=== PATIENT | female | born 1965 | race Caucasian/White ===

== ENCOUNTER 2021-03-13 10:30 | Outpatient (REF) | payer OTHER, SELFPAY ==
--- NOTE | ~2021-03-13 | MM_ITS ---
EXAMINATION: MM SCREENING DIGITAL BREAST TOMOSYNTHESIS, BILATERAL CLINICAL INFORMATION: Screening. Asymptomatic. The lifetime risk of breast cancer based on the Tyrer-Cuzick Model is 11%. COMPARISON: Mammography: 01/28/2017; outside mammography 12/04/2012 ([facility]). TECHNIQUE: Digital breast tomosynthesis is performed in both the craniocaudal and mediolateral oblique views along with computer-aided detection (CAD). Synthesized 2D images are generated from the tomosynthesis. FINDINGS: There are scattered areas of fibroglandular density (ACR BI-RADS breast composition Category b). There are no significant masses, abnormal calcifications, or other abnormalities. Parenchymal pattern is similar to prior exams. No developing density. No significant changes. MM/MM tomosynthesis screening BI IMPRESSION: No mammographic evidence of malignancy. ASSESSMENT: BI-RADS 1: Negative RECOMMENDATION: Routine annual mammography screening. This patient's information was entered into a reminder system with a target due date for their next mammogram.
== END 2021-03-13 10:31 | disposition home or self-care (01) ==
LOC: HO.MAMMO 10:30
PROVIDERS: PCP Family Medicine; Visit Provider Family Medicine
DX: Z12.31 Encounter for screening mammogram for malignant neoplasm of breast (principal)
CPT/HCPCS: 77063; 77067

== ENCOUNTER → 2021-04-03 12:46 | Outpatient (BNVA) | payer OTHER, SELFPAY | PROVIDERS: PCP Family Medicine; Referring Provider Family Medicine; Visit Provider Nurse Practitioner | DX: Z13.89 Encounter for screening for other disorder (principal) | CPT/HCPCS: Q3014 ==

== ENCOUNTER 2021-06-16 10:12 | Outpatient (REF) | payer OTHER, SELFPAY ==
[2021-06-16 10:49] LABS: MANUAL DIFF FLAG NO
[2021-06-16 11:07] LABS: Basophils Percent Auto 0.4 % (0-2); Eosinophils Absolute Auto 0.1 X10*3/uL (0.0-0.4); Eosinophils Percent Auto 2.2 % (0-4); Hematocrit 37.1 % (37.0-47.0); Hemoglobin 12.2 g/dl (12.0-16.0); Imm Gran Abs Auto 0.01 X10*3/uL (0.00-0.03); Imm Gran Pct Auto 0.2 % (0.0-0.4); Lymphocytes Absolute Auto 2.1 X10*3/uL (1.2-4.9); Lymphocytes Percent Auto 39.7 % (20-40); Mean Corpuscular HGB Conc 32.9 g/dl (31.0-35.0); Mean Corpuscular Hemoglobin 29.8 pg (27.0-33.0); Mean Corpuscular Volume 90.5 fL (80.0-98.0); Mean Platelet Volume 9.7 fL (9.4-12.3); Monocytes Absolute Auto 0.4 X10*3/uL (0.1-1.2); Monocytes Percent Auto 7.6 % (2-11); Neutrophils Absolute Auto 2.7 x10*3/uL (2.0-8.3); Neutrophils Percent Auto 49.9 % (45-73); Platelet Count 251 X10*3/uL (160-400); Red Cell Distribution Width 11.5 % (11.0-16.0); White Blood Count 5.4 X10*3/uL (4.8-10.8)
[2021-06-16 11:53] LABS: Alanine Aminotransferase 15 U/L (0-31); Alkaline Phosphatase 57 U/L (39-117); Anion Gap 13 (12-20); Aspartate Amino Transferase 12 U/L (5-31); Bilirubin Total 0.5 mg/dL (0.0-1.0); Blood Urea Nitrogen 17 mg/dL (9-16); Calcium 9.5 mg/dL (8.4-10.2); Carbon Dioxide 28 mmol/L (22-29); Chloride 103 mmol/L (96-108); Estimated Glomerular Filt Rate > 60; Glucose Random 84 mg/dL (60-115); Potassium 5.3 mmol/L (3.3-5.1); Sodium 139 mmol/L (135-145); Total Protein 7.3 g/dL (6.5-8.0)
== END 2021-06-16 10:13 | disposition home or self-care (01) ==
LOC: HO.LAB 10:12
PROVIDERS: PCP Family Medicine; Visit Provider Nurse Practitioner
DX: Z12.11 Encounter for screening for malignant neoplasm of colon (principal)
CPT/HCPCS: 36415; 80053; 85025

== ENCOUNTER 2021-07-20 09:29 | Day surgery (SDC) | payer OTHER, SELFPAY ==
--- NOTE | 2021-07-17 09:12 | P.CONAN_ITS ---
Documented by User: Jazmyne Eng NP 07/17/21 09:19 HPI - Anesthesia Eval Consult details Narrative: 55yo F for Colonoscopy Suboxone daily PMFSH Active Problems Active Problems: All Active Problems (Updated 03/24/20 @ 16:52 by ANDREW Conroy) Colon cancer screening (Acute) Past Medical History Medical History Asthma Depression Elevated cholesterol Polysubstance abuse PTSD (post-traumatic stress disorder) Surgical History Surgical History Hx of section Social History Social History Patient Tobacco Use Status: Current everyday Tobacco user Tobacco use type: Cigarette Cigarette Packs Per Day: 0.5 Cigarettes Per Day: 10.0 Use of substances other than those prescribed or required for medical reasons: No Are you DNR?: No Advance Directives: No Advance Directives Information Provided: Yes Nutrition Risks: No Nutritional Risk Meds Allergies Allergy/AdvReac Type Severity Reaction Status Date / Time No Known Allergies Allergy Verified 04/03/21 12:47 Home Medications Medication Instructions Recorded Confirmed Last Taken Type acamprosate 333 mg tablet,delayed 2 tab PO TID 02/15/20 02/15/20 Unknown History release acetaminophen 650 mg 1,300 mg PO Q8H 02/15/20 02/15/20 Unknown History tablet,extended release albuterol sulfate 90 mcg/actuation 2 puff INHALATION Q4H PRN 02/15/20 02/15/20 Unknown History aerosol inhaler atorvastatin 20 mg tablet 1 tab PO BEDTIME 02/15/20 02/15/20 Unknown History buprenorphine 8 mg-naloxone 2 mg 0.5 strip SUBLINGUAL BID 02/15/20 02/15/20 Unknown History sublingual film bupropion HCl 75 mg tablet PO 02/15/20 Unknown History docusate sodium 100 mg capsule 1 cap PO BID PRN 02/15/20 02/15/20 Unknown History (DOK) fluticasone propionate 110 1 puff PO BID 02/15/20 02/15/20 Unknown History mcg/actuation HFA aerosol inhaler (Flovent HFA) folic acid 1 mg tablet 1 mg PO DAILY 02/15/20 02/15/20 Unknown History hydroxyzine pamoate 50 mg capsule 1 cap PO TID PRN 02/15/20 02/15/20 Unknown History melatonin 5 mg tablet 5 mg PO BEDTIME PRN 02/15/20 02/15/20 Unknown History olanzapine 20 mg tablet 20 mg PO DAILY 02/15/20 02/15/20 Unknown History prazosin 2 mg capsule 2 mg PO BEDTIME 02/15/20 02/15/20 Unknown History sertraline 50 mg tablet (Zoloft) 50 mg PO DAILY 02/15/20 02/15/20 Unknown History thiamine HCl (vitamin B1) 100 mg 100 mg PO DAILY 02/15/20 02/15/20 Unknown History tablet Exam Exam Date and Time: July 17, [id number] Pertinent Lab Results Pertinent Lab Results: Laboratory Tests 06/16/21 06/16/21 10:47 10:47 WBC 5.4 Hgb 12.2 Hct 37.1 Plt Count 251 Sodium 139 Potassium 5.3 H Chloride 103 Carbon Dioxide 28 BUN 17 H Creatinine 0.90 Assessment and Plan Assessment Anesthesia Assessment: Chart Reviewed Documented by User: Lyla Hsu MD 07/20/21 10:43 PMFSH Past Medical History Medical History Asthma Depression Elevated cholesterol Polysubstance abuse PTSD (post-traumatic stress disorder) Surgical History Surgical History Hx of section History of Problems with Anesthesia: No Social History Social History Patient Tobacco Use Status: Current everyday Tobacco user Tobacco use type: Cigarette Cigarette Packs Per Day: 0.5 Cigarettes Per Day: 10.0 Use of substances other than those prescribed or required for medical reasons: No Are you DNR?: No Advance Directives: No Advance Directives Information Provided: Yes Nutrition Risks: No Nutritional Risk Meds Allergies Allergy/AdvReac Type Severity Reaction Status Date / Time No Known Allergies Allergy Verified 04/03/21 12:47 Home Medications Medication Instructions Recorded Confirmed Last Taken Type acamprosate 333 mg tablet,delayed 2 tab PO TID 02/15/20 02/15/20 Unknown History release acetaminophen 650 mg 1,300 mg PO Q8H 02/15/20 02/15/20 Unknown History tablet,extended release albuterol sulfate 90 mcg/actuation 2 puff INHALATION Q4H PRN 02/15/20 02/15/20 Unknown History aerosol inhaler atorvastatin 20 mg tablet 1 tab PO BEDTIME 02/15/20 02/15/20 Unknown History buprenorphine 8 mg-naloxone 2 mg 0.5 strip SUBLINGUAL BID 02/15/20 02/15/20 Unknown History sublingual film bupropion HCl 75 mg tablet PO 02/15/20 Unknown History docusate sodium 100 mg capsule 1 cap PO BID PRN 02/15/20 02/15/20 Unknown History (DOK) fluticasone propionate 110 1 puff PO BID 02/15/20 02/15/20 Unknown History mcg/actuation HFA aerosol inhaler (Flovent HFA) folic acid 1 mg tablet 1 mg PO DAILY 02/15/20 02/15/20 Unknown History hydroxyzine pamoate 50 mg capsule 1 cap PO TID PRN 02/15/20 02/15/20 Unknown Hi story melatonin 5 mg tablet 5 mg PO BEDTIME PRN 02/15/20 02/15/20 Unknown History olanzapine 20 mg tablet 20 mg PO DAILY 02/15/20 02/15/20 Unknown History prazosin 2 mg capsule 2 mg PO BEDTIME 02/15/20 02/15/20 Unknown History sertraline 50 mg tablet (Zoloft) 50 mg PO DAILY 02/15/20 02/15/20 Unknown History thiamine HCl (vitamin B1) 100 mg 100 mg PO DAILY 02/15/20 02/15/20 Unknown History tablet Exam Airway Mallampati Class: II TM Dist: >3cm Neck ROM: Full Loose/Missing/Broken Teeth: No Heart: RRR Lungs: CTA Assessment and Plan Assessment Anesthesia Assessment: Anesthesia Plan Discussed Final Anesthetic Review History of Problems with Anesthesia: No NPO: Yes ASA Class: II Final Preanesthetic Review: Meds/Allgs Chart Reviewed, Consent Obtained/Reviewed and Anes Risks/Benef Reviewed Patient Risk: Low Procedure Risk: Low Anesthetic Plan Anesthetic Plan: MAC: Disposition: Standard PACU
[2021-07-20 09:41] VITALS: BMI 26.4
[2021-07-20 10:18] VITALS: BP 102/54; PULSE 49; RESP 16; TEMP 36.1; O2SAT 96
--- NOTE | 2021-07-20 10:27 | MHC.SHP ---
Pre-Procedural Eval Section A Date of Service: 07/20/21 The patient is an INPATIENT: No The History & Physical has been completed within 30 days and I have reviewed it.: No Section B Chief Complaint: Screening Details of Present Illness: Colon cancer screening Relevant Social History: Tobacco Use Present Medications: see Short Stay Collaborative assessment Medical History: Significant History (Asthma Depression Elevated cholesterol Polysubstance abuse PTSD (post-traumatic stress disorder)) History of Previous Operations: Relevant previous surgery/procedure and date(s) (History of ) Allergies: Allergies Allergy/AdvReac Type Severity Reaction Status Date / Time No Known Allergies Allergy Verified 04/03/21 12:47 Review of Systems Sugical H&P ROS: Negative: Constitution, Cardiovascular, Respiratory and Gastrointestinal Exam Surgical H&P Exam: Normal: Heart, Normal: Lungs, Normal: Extremities and Normal: Abdomen Plan Diagnosis/Plan: Unchanged I have reviewed the history and physical and performed a pertinent physical examination on my patient. No changes have occurred unless specified.
--- NOTE | 2021-07-20 10:29 | P.OP_ITS ---
Operative Note Operative Note Date of Service: 07/20/21 Narrative: Pre-op diagnosis: Colon cancer screening Post-op diagnosis:?other (Diverticulosis) Procedure: COLONOSCOPY TILL CECUM Consent: Indications for the procedure and potential complications of bleeding, perforation, reaction to medications and missed diagnosis were discussed with the patient and informed consent was obtained. Instrument: Olympus PCF H 190 L variable stiffness pediatric colonoscope Monitoring: Vital signs and clinical assessment, intermittent blood pressure monitoring, continuous EKG monitoring, Pulse oximetry and Carbon Dioxide monitoring were done throughout the procedure. Colon withdrawl time was 15 minutes. Procedure: The patient was placed in the left lateral decubitis position and pre-procedure medications were administered. After a digital rectal examination of the ano-rectum, the video colonoscope was inserted into the rectum and advanced through the colon to the cecum. The colonoscope was slowly withdrawn in a retrograde panoramic fashion and the colon mucosa was carefully examined including a retroflexed view of the rectum. Findings and interventions are described below. Procedure Difficulty: Without difficulty Findings: Terminal Ileum: Not evaluated Cecum:? Normal Ascending Colon:? Normal Transverse Colon:? Normal Descending Colon:? Normal Sigmoid Colon:? Moderate diverticulosis Rectum:? Normal Ano-rectum:? Normal Colon preparation:? Good after some irrigation Impression and Post Procedure Diagnosis: Colonoscopy Findings: No polyps were detected Moderate diverticulosis seen in the sigmoid colon Plan: Patient has an appointment on 08/10/21 in the GI Clinic with? Marlena Orona NP . Repeat Colonoscopy in 5 years since family hx is not known (pt is adopted). Above findings were reviewed with the patient and diverticulosis handout was given in the discharge area Surgeon: Logan Salazar MD Anesthesia:?MAC (Dr Hsu) Was an Desktop Operator used for this Procedure?:?Yes Desktop Operator:?Sapna Carrillo Estimated blood loss (mL):?0 Pathology:?none sent Condition:?stable Disposition:?PACU
[2021-07-20 10:39] VITALS: PULSE 44
[2021-07-20] MEDS: Lactated Ringers 1,000 ML 100 ML IVCONT (10:46)
[2021-07-20 11:20] VITALS: BP 112/67; PULSE 67; RESP 18; TEMP 36.6; O2SAT 99
[2021-07-20 11:35] VITALS: BP 127/72; PULSE 62; RESP 20; TEMP 36.7; O2SAT 99
== END 2021-07-20 12:18 | disposition home or self-care (01) ==
PROVIDERS: PCP Family Medicine; Visit Provider Internal Medicine Gastroenterology
PROC: 0DJD8ZZ Inspection of Lower Intestinal Tract, Via Natural or Artificial Opening Endoscopic (ICD-10-PCS; CPT 45378; principal; 2021-07-20 10:50)
DX: Z12.11 Encounter for screening for malignant neoplasm of colon (principal); K57.30 Diverticulosis of large intestine without perforation or abscess without bleeding; J45.909 Unspecified asthma, uncomplicated; E78.00 Pure hypercholesterolemia, unspecified; F10.20 Alcohol dependence, uncomplicated; F14.20 Cocaine dependence, uncomplicated; F11.20 Opioid dependence, uncomplicated; F17.210 Nicotine dependence, cigarettes, uncomplicated; F32.9 Major depressive disorder, single episode, unspecified; F43.10 Post-traumatic stress disorder, unspecified; Z79.51 Long term (current) use of inhaled steroids; Z79.899 Other long term (current) drug therapy
CPT/HCPCS: G0121

== ENCOUNTER → 2021-08-10 12:48 | Outpatient (BNVA) | payer OTHER, SELFPAY | PROVIDERS: PCP Family Medicine; Referring Provider Family Medicine; Visit Provider Nurse Practitioner | DX: Z12.11 Encounter for screening for malignant neoplasm of colon (principal) | CPT/HCPCS: 99212 ==

== ENCOUNTER 2022-11-29 14:57 | Outpatient (REF) | payer MEDICARE, SELFPAY ==
[2022-12-01 02:20] LABS: Syphilis Screen Nonreactive (Nonreactive)
[2022-12-03 05:44] LABS: Lyme Abs Screen <0.90 index
== END 2022-11-29 14:58 | disposition home or self-care (01) ==
LOC: HO.HHCL 14:57
PROVIDERS: Visit Provider Emergency Medicine
DX: R21 Rash and other nonspecific skin eruption (principal)
CPT/HCPCS: 36415; 86617; 86618; 86780

== ENCOUNTER 2023-05-04 09:10 | Outpatient (REF) | payer OTHER, SELFPAY ==
[2023-05-04 11:47] LABS: Hematocrit 38.9 % (37.0-47.0); Hemoglobin 12.8 g/dl (12.0-16.0); Mean Corpuscular HGB Conc 32.9 g/dl (31.0-35.0); Mean Corpuscular Hemoglobin 29.6 pg (27.0-33.0); Mean Platelet Volume 10.7 fL (9.4-12.3); Platelet Count 205 X10*3/uL (160-400); Red Blood Count 4.32 X10*6/uL (4.20-5.50); Red Cell Distribution Width 11.9 % (11.0-16.0); White Blood Count 4.7 X10*3/uL (4.8-10.8)
[2023-05-04 12:01] LABS: Estimated Average Glucose 111 mg/dL; Hemoglobin A1c % 5.5 % (<6.0)
[2023-05-04 12:10] LABS: Alanine Aminotransferase 16 U/L (0-31); Albumin Level 4.1 g/dL (3.5-5.0); Alkaline Phosphatase 70 U/L (39-117); Anion Gap 15 (12-20); Aspartate Amino Transferase 15 U/L (5-31); Bilirubin Direct 0.2 mg/dL (0.0-0.5); Bilirubin Total 0.6 mg/dL (0.0-1.0); Blood Urea Nitrogen 19 mg/dL (9-16); Calcium 9.4 mg/dL (8.4-10.2); Carbon Dioxide 22 mmol/L (22-29); Chloride 105 mmol/L (96-108); Cholesterol 137 mg/dL (<200); Estimated Glomerular Filt Rate > 60; Glucose Random 84 mg/dL (60-115); HDL Cholesterol 47 mg/dL (>40); LDL Cholesterol Calculated 72 mg/dL (<100); Potassium 3.9 mmol/L (3.3-5.1); Sodium 138 mmol/L (135-145); Total Protein 7.7 g/dL (6.5-8.0); Triglycerides 91 mg/dL (<150)
[2023-05-04 12:36] LABS: Free T4 (Free Thyroxine) 1.06 ng/dL (0.71-1.85); Thyroid Stimulating Hormone 3.07 uIU/mL (0.32-4.0)
[2023-05-06 08:44] LABS: RPR Rapid Plasma Reagin NON-REACTIVE (NON-REACTIVE)
== END 2023-05-04 09:11 | disposition home or self-care (01) ==
LOC: HO.HHCL 09:10
PROVIDERS: Visit Provider Family Medicine
DX: E78.49 Other hyperlipidemia (principal)
CPT/HCPCS: 36415; 80048; 80061; 80076; 82306; 83036; 84439; 84443; 85027; 86592

== ENCOUNTER 2023-05-10 10:23 | Outpatient (REF) | payer OTHER, SELFPAY | END 2023-05-10 10:24 | disposition home or self-care (01) | LOC: HO.HHCX 10:23 | PROVIDERS: Visit Provider Family Medicine | DX: M25.571 Pain in right ankle and joints of right foot (principal); G89.29 Other chronic pain | CPT/HCPCS: 73600; 73620 ==

== ENCOUNTER 2023-10-07 10:59 | Outpatient (REF) | payer OTHER, SELFPAY ==
--- NOTE | ~2023-10-07 | XR_ITS ---
EXAMINATION: XR HAND, RIGHT CLINICAL INFORMATION: Pain, 2 months duration of right thumb MCP joint. COMPARISON: None available. TECHNIQUE: PA, lateral, and oblique views of the right hand. FINDINGS: Carpal bones are normal (i.e., no carpal bone fracture or subluxation). The joint spaces of the wrist are maintained. Old healed fracture of the distal fifth metacarpal. No acute osseous injury. There is nonuniform articular cartilage space narrowing, subchondral cystic change and minimal osteophyte formation at the thumb metacarpophalangeal joint. Soft tissues appear to be swollen around this joint. There is anterior and ulnar subluxation of the proximal phalanx of this arthritic joint. Otherwise, metacarpophalangeal joint spaces are well-preserved. Interphalangeal joints are unremarkable. 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 * Old healed fracture of the fifth metacarpal. No acute osseous injury.
== END 2023-10-07 11:00 | disposition home or self-care (01) ==
LOC: HO.HHCX 10:59
PROVIDERS: Visit Provider Family Medicine
DX: M79.644 Pain in right finger(s) (principal)
CPT/HCPCS: 73130

== ENCOUNTER 2023-10-11 15:05 | Outpatient (REF) | payer OTHER, SELFPAY ==
[2023-10-11 16:19] LABS: MANUAL DIFF FLAG NO
[2023-10-11 16:24] LABS: Basophils Percent Auto 0.6 % (0-2); Eosinophils Absolute Auto 0.1 X10*3/uL (0.0-0.4); Eosinophils Percent Auto 1.4 % (0-4); Hematocrit 36.6 % (37.0-47.0); Hemoglobin 12.3 g/dl (12.0-16.0); Imm Gran Abs Auto 0.02 X10*3/uL (0.00-0.03); Imm Gran Pct Auto 0.4 % (0.0-0.4); Lymphocytes Absolute Auto 1.2 X10*3/uL (1.2-4.9); Lymphocytes Percent Auto 23.1 % (20-40); Mean Corpuscular HGB Conc 33.6 g/dl (31.0-35.0); Mean Corpuscular Hemoglobin 29.6 pg (27.0-33.0); Mean Platelet Volume 9.9 fL (9.4-12.3); Monocytes Absolute Auto 0.3 X10*3/uL (0.1-1.2); Monocytes Percent Auto 6.6 % (2-11); Neutrophils Absolute Auto 3.4 x10*3/uL (2.0-8.3); Neutrophils Percent Auto 67.9 % (45-73); Platelet Count 208 X10*3/uL (160-400); Red Blood Count 4.16 X10*6/uL (4.20-5.50); Red Cell Distribution Width 11.7 % (11.0-16.0)
[2023-10-11 17:07] LABS: Estimated Average Glucose 114 mg/dL; Hemoglobin A1C 151.9939 umol/L; Hemoglobin A1c % 5.6 % (<6.0)
[2023-10-11 17:42] LABS: Alanine Aminotransferase 19 U/L (0-31); Alkaline Phosphatase 80 U/L (39-117); Anion Gap 15 (12-20); Aspartate Amino Transferase 14 U/L (5-31); Bilirubin Direct 0.2 mg/dL (0.0-0.5); Bilirubin Total 0.5 mg/dL (0.0-1.0); Blood Urea Nitrogen 17 mg/dL (9-16); Calcium 9.5 mg/dL (8.4-10.2); Carbon Dioxide 24 mmol/L (22-29); Chloride 105 mmol/L (96-108); Cholesterol 157 mg/dL (<200); Estimated Glomerular Filt Rate > 60; Glucose Random 80 mg/dL (60-115); HDL Cholesterol 55 mg/dL (>40); Iron 63 mcg/dL (30-160); LDL Cholesterol Calculated 82 mg/dL (<100); Percent Iron Saturation 23 % (15-50); Potassium 4.2 mmol/L (3.3-5.1); Sodium 140 mmol/L (135-145); Total Iron Binding Capacity 277 mcg/dL (228-428); Total Protein 7.5 g/dL (6.5-8.0); Triglycerides 100 mg/dL (<150); Unsaturated Iron Binding 214 ug/dL
[2023-10-11 17:59] LABS: Ferritin 64 ng/mL (10-250); Free T4 (Free Thyroxine) 0.94 ng/dL (0.71-1.85); Vitamin D 25-OH Total 22.7 ng/mL (>30)
[2023-10-11 18:06] LABS: Folate 8.7 ng/mL (> or = 4.0); Vitamin B12 316 pg/mL (200-900)
[2023-10-12 08:29] LABS: Hepatitis A Antibody IgG REACTIVE (Nonreactive)
[2023-10-12 08:33] LABS: HBS Num1 > 1000.00 mIU/mL (0-7.99); HBc Num1 0.08 S/CO (0.00-0.79); HBsAGNum1 0.28 S/CO (0.00-0.99); HIV AB/AG Nonreactive (Nonreactive); HIV Num 1 0.04 S/CO (0.00-0.99); Hepatitis B Core Antibody Nonreactive (Nonreactive); Hepatitis B Surface Antigen Negative (Negative); ~HepC Num1 0.11 S/CO (0.00-0.79); ~Hepatitis B Surface Antibody REACTIVE (Nonreactive); ~Hepatitis C Antibody Nonreactive (Nonreactive)
[2023-10-12 11:33] LABS: RPR Rapid Plasma Reagin NON-REACTIVE (NON-REACTIVE)
[2023-10-16 15:04] LABS: Vitamin B1 16 nmol/L (8-30)
== END 2023-10-11 15:06 | disposition home or self-care (01) ==
LOC: HO.HHCL 15:05
PROVIDERS: Visit Provider Family Medicine
DX: Z00.00 Encounter for general adult medical examination without abnormal findings (principal); R25.1 Tremor, unspecified
CPT/HCPCS: 36415; 80048; 80061; 80076; 82306; 82607; 82728; 82746; 83036; 83540; 84425; 84439; 84443; 85025; 86592; 86704; 86706; 86708; 86803; 87340; 87389

== ENCOUNTER 2024-02-21 18:02 | Outpatient (REF) | payer OTHER, SELFPAY | END 2024-02-21 18:03 | disposition home or self-care (01) | LOC: HO.HHCLNP 18:02 | PROVIDERS: Visit Provider Nurse Practitioner Primary Care | DX: N30.01 Acute cystitis with hematuria (principal) | CPT/HCPCS: 87086; 87088; 87186 ==

== ENCOUNTER 2024-06-26 13:31 | Outpatient (REF) | payer OTHER, SELFPAY ==
--- OUTSIDE RECORDS SUMMARY | 2024-06-26 13:44 | XMS_ITS | Encounter Summary ---
Author Organization [facility] Address [address] [facility] [address] [place] [address] Care Team Providers Care Microsoft Bi Consultant Name Role Phone Natalie Cuenca DO Primary Care Provider Encounter Details Date Type Department Care Team (Latest Contact Info) Description 05/02/2019 Abstract [facility] CONVERSIONS Dental, Provider, DDS Social History Tobacco Use Types Packs/Day Years Used Date Smoking Tobacco: Never Assessed Comments Unknown Sex and Gender Information Value Date Recorded Sex Assigned at Female 03/22/2022 10:14 AM EDT Legal Sex Female 10:14 AM EDT Gender Identity Female 03/22/2022 10:14 AM EDT Sexual Orientation Lesbian or Koenig 03/22/2022 10 :14 AM EDT documented as of this encounter Plan of Treatment Upcoming Encounters Date Type Department Care Team (Late st Contact Info) Description 06/26/2024 2:30 PM EST Office Visit [address] [address] Mina Lan MD [address] [place] [address] 07/24/2024 2:00 PM EST Clinical Support [facility] MEDICINE [address] [place] [phone] Debbie Vogel, PARAMJIT documented as of this encounter Visit Diagnoses Not on filedocumented in this encounter Care Teams Microsoft Bi Consultant Relationship Specialty Start Date End Date Natalie Cuenca DO [address] [place] [phone] PCP - General Family Medicine 05/23/18 documented as of this encounter
--- OUTSIDE RECORDS SUMMARY | 2024-06-26 13:44 | XMS_ITS | Encounter Summary ---
Author Organization [employer] Address [address] [facility] [address] [place] [address] Care Team Providers Care Coroner Technician Name Role Phone Natalie Cuenca DO Primary Care Provider [phone] Reason for Visit * Reason Comments Med Change Request Encounter Details Date Type Department Care Team ([facility] st Contact Info) Description 02/26/2024 Refill [facility] MEDICINE [address] [place], [place] [phone] Natalie Cuenca DO [address] [place], [place] [phone] Tobacco use disorder Social History Tobacco Use Types Packs/Day Years Used Date Smoking Tobacco: Every Day Cigarettes Passive Smoke Exposure: Never Smokeless Tobacco: Never Alcohol Use Standard Drinks/Week Comments Not Currently 0 (1 standard drink = 0.6 oz pur e alcohol) Depression Answer Date Recorded Patient Health Questionnaire-9 Score 10 02/07/2024 Patient Health Questionnaire-9 Score 10 02/07/2024 Last PHQ-9: Questionnaire Data Not on file 0 02/07/2024 Housing Stability Answer Date Recorded What is your housing situation today? I have mariah mane 10/10/[address] you li ve. Do you have problems with any of the following? None of the above 10/10/2023 Food Insecurity Answer Date Recorded Within the past 12 months, y ou worried that your food would run out before you got money to buy more: Never True 10/10/2023 Within the past 12 months,th e food you bought just didn't last and you didn't have enough money to get more: Never True Transportation Answer Date Recorded In the past 12 months, has l ack of transportation kept you from medical appts, meetings, work or from getting things needed for daily living? No 10/10/2023 Utilities Answer Date Recorded In the past 12 months, has t he electric, gas, oil or water company threatened to shut off services in your home? No 10/10/2023 Depression Answer Date Recorded Patient Health Questionnaire-2 Score 4 02/07/2024 Comments Unknown Sex and Gender Information Value [...] Description 06/26/2024 2:30 PM EST Office Visit [address] [phone] Mina Lan MD [address] [place] [address] 07/24/2024 2:00 PM EST Clinical Support [address] [address] Debbie Vogel, PARAMJIT documented as of this encounter Visit Diagnoses Diagnosis Tobacco use disorder documented in this encounter Additional Health Concerns Assessment Noted Time PHQ-9 Depression Total Score: 10 024 8:39 AM EDT documented as of this encounter Care Teams Coroner Technician Relationship Specialty Start Date End Date Natalie Cuenca DO [address] [place] [phone] PCP - General Family Medicine 05/23/18 documented as of this encounter
--- OUTSIDE RECORDS SUMMARY | 2024-06-26 13:44 | XMS_ITS | Encounter Summary ---
Author Organization [employer] Address [address] [facility] 7[address] [place] [address] Care Team Providers Care Registered Dietetic Technician Name Role Phone Natalie Cuenca DO Primary Care Provider [phone] Reason for Visit * Reason Onset Date Comments Referral 02/23/2024 Encounter Details Date Type Department Care Team ([facility] st Contact Info) Description 02/23/[address] [facility] MEDICINE [address] [place], [place] [phone] Natalie Cuenca DO [address] [place] [address] Referral Social History Tobacco Use Types Packs/Day Years [...] AM EDT documented as of this encounter Miscellaneous Notes * Telephone Encounter - Dexter Nascimento Palomo - 02/23/2024 3:56 PM EDT Tc from pt requesting if pcp could refer her over somewhere in [place] due to location, Referral for BI Mammogram documented in this encounter Plan of Treatment Upcoming Encounters Date Type Department Care Team (Late st Contact Info) Description 06/26/2024 2:30 PM EST Office Visit [facility] MEDICINE [address] [place] [address] Mina Lan MD [address] [place] [address] 07/24/2024 2:00 PM EST Clinical Support [address] [address] Debbie Vogel RN documented as of this encounter Visit Diagnoses Not on filedocumented in this encounter Additional Health Concerns Assessment Noted Time PHQ-9 Depression Total Score: 10 024 8:39 AM EDT documented as of this encounter Care Teams Registered Dietetic Technician Relationship Specialty Start Date End Date Natalie Cuenca DO [address] [place] [phone] PCP - General Family Medicine 05/23/18 documented as of this encounter
--- OUTSIDE RECORDS SUMMARY | 2024-06-26 13:45 | XMS_ITS | Encounter Summary ---
Author Organization [employer] [facility] Address [address] [facility] [address] [place] [address] Care Team Providers Care Press Worker Helper Name Role Phone Natalie Cuenca DO Primary Care Provider [phone]- [phone] Reason for Visit * Reason Comments Med Refill Encounter Details Date Type Department Care Team (Late st Contact Info) Description 01/02/[address] [phone] Natalie Cuenca DO [address] [place] [address] [phone] Tobacco use disorder; Muscle spasm Social History Tobacco Use Types Packs/Day Years Used Date Smoking Tobacco: Every Day Cigarettes Smokeless Tobacco: Never Alcohol Use Standard Drinks/Week Comments Not Currently 0 (1 standard drink = 0.6 oz pur e alcohol) Depression Answer Date Recorded Patient Health Questionnaire-9 Score 0 06/18/2022 Depression Answer Date Recorded Patient Health Questionnaire-2 Score 0 06/18/2022 Comments Unknown Sex and Gender Information Value [...] Description 06/26/2024 2:30 PM EST Office Visit [address] [phone] Mina Lan MD [address] [place] [phone] Arrived 07/24/2024 2:00 PM EST Clinical Support [address] [place] [address] Debbie Vogel RN documented as of this encounter Visit Diagnoses Diagnosis Tobacco use disorder Muscle spasm Spasm of muscle documented in this encounter Additional Health Concerns Assessment Noted Time PHQ-9 Depression Total Score: 0 06/18/19 23 1:12 PM EST documented as of this encounter Care Teams Press Worker Helper Relationship Specialty Start Date End Date Natalie Cuenca DO [address] [place] [address] PCP - General Family Medicine 05/23/18 documented as of this encounter
--- OUTSIDE RECORDS SUMMARY | 2024-06-26 13:45 | XMS_ITS | Encounter Summary ---
Author Organization [employer] [facility] Address [address] [facility] [address] [place] [address] Care Team Providers Care Military Lawyer Name Role Phone Natalie Cuenca DO Primary Care Provider Encounter Details Date Type Department Care Team (Late st Contact Info) Description 05/25/2022 [facility] [address] [place], [place] [phone] Natalie Cuenca DO [address] [place], [place] [phone] Social History Tobacco Use Types Packs/Day Years Used Date Smoking Tobacco: Never Assessed Comments Unknown Sex and Gender Information Value Date Recorded Sex Assigned at Female 03/22/2022 10:14 AM EDT Legal Sex Female 10:14 AM EDT Gender Identity Female 03/22/2022 10:14 AM EDT Sexual Orientation Lesbian or Koenig 03/22/2022 10 :14 AM EDT COVID-19 Exposure Response Date Recorded In the last 10 days, have yo u been in contact with someone who was confirmed or suspected to have Coronavirus/COVID-19? No / Unsure 05/28/2022 10:26 AM EST documented as of this encounter Plan of Treatment Upcoming Encounters Date Type Department Care Team (Late st Contact Info) Description 06/26/2024 2:30 PM EST Office Visit [address] [phone] Mina Lan MD [address] [place], [place] [phone] 07/24/2024 2:00 PM EST Clinical Support [address] [phone] Enko, Debbie, RN documented as of this encounter Visit Diagnoses Not on filedocumented in this encounter Care Teams Military Lawyer Relationship Specialty Start Date End Date Natalie Cuenca DO [address] [place] [phone] PCP - General Family Medicine 05/23/18 documented as of this encounter
--- OUTSIDE RECORDS SUMMARY | 2024-06-26 13:45 | XMS_ITS | Encounter Summary ---
Author Organization [employer] Address [address] [facility] [address] [place] [address] Care Team Providers Care Stripper Cutter Machine Name Role Phone SamuelNatalie dumont Primary Care Provider Encounter Details Date Type Department Care Team (Latest Contact Info) Description 06/19/2024 Travel Social History Tobacco Use Types Packs/Day Years Used Date Smoking Tobacco: Every Day Cigarettes Passive Smoke Exposure: Never Smokeless Tobacco: Never Alcohol Use Standard Drinks/Week Comments Not Currently 0 (1 standard drink = 0.6 oz pur e alcohol) Depression Answer Date Recorded Patient Health Questionnaire-9 Score 7 06/07/2024 Patient Health Questionnaire-9 Score 7 06/07/2024 Last PHQ-9: Questionnaire Data Not on file 0 06/07/2024 Housing Stability Answer Date Recorded What is [...] Date Recorded Patient Health Questionnaire-2 Score 4 06/07/2024 Comments Unknown Sex and Gender Information Value [...] Description 06/26/2024 2:30 PM EST Office Visit [address] [phone] Mina Lan MD [address] [place] [address] 07/24/2024 2:00 PM EST Clinical Support [address] [address] Debbie Vogel RN documented as of this encounter Visit Diagnoses Not on filedocumented in this encounter Additional Health Concerns Assessment Noted Time PHQ-9 Depression Total Score: 7 06/07/19 25 1:09 PM EST documented as of this encounter Care Teams Stripper Cutter Machine Relationship Specialty Start Date End Date Natalie Cuenca DO [address] [place] [phone] PCP - General Family Medicine 05/23/18 documented as of this encounter
--- OUTSIDE RECORDS SUMMARY | 2024-06-26 13:45 | XMS_ITS | Encounter Summary ---
Author Organization [facility] [employer] Address [address] [facility] 7t [place] [address] Care Team Providers Care Stonemason Helper Name Role Phone Michaeltorsten Natalie Primary Care Provider +1- [phone] Reason for Referral * Consultation (Routine) - Authorized Specialty Diagnoses / Procedures Referred By Jigna gama Referred To Contact Family Medicine Diagnoses Labial cyst Tatiana Putnam CNM [address] [place] [address] Phone: tel: fax: Referral ID Status Reason Start Date Expiration Date Visits Requested Visits Authorized [id number] Authorized Specialty Services Required 06/26/2024 06/26/2025 1 1 Reason for Visit * Reason Comments Gynecologic Exam Encounter Details Date Type Department Care Team (Latest Contact Info) Description 06/26/2024 1:00 PM EST Procedure Visit [facility] MED[facility]INE [address] [place] [address] Tatiana Putnam CNM [address] [place] [address] Cervical cancer screening (Primary Dx); Screening examination for venereal disease; Labial cyst; Candidal skin infection Social History Tobacco Use Types Packs/Day Years [...] Patient Health Questionnaire-2 Score 4 06/07/2024 Comments No Sex and Gender Information Value Date Recorded Sex Assigned at Female 03/22/2022 10:14 AM EDT Legal Sex Female 10:14 AM EDT Gender Identity Female 03/22/2022 10:14 AM EDT Sexual Orientation Lesbian or Koenig 03/22/2022 10 :14 AM EDT documented as of this encounter Last Filed Vital Signs Vital Sign Reading Time Taken Comments Blood Pressure 104/64 06/26/2024 1:06 PM EST Pulse 66 06/26/2024 1:06 PM EST Temperature 36.3 ??C (97.3 ??F) 06/26/2024 1:06 PM ES T Respiratory Rate 20 06/26/2024 1:06 PM EST Oxygen Saturation 98% 06/26/2024 1:06 PM EST Inhaled Oxygen Concentration - - Weight 84.2 kg (185 lb 9.6 oz) 06/26/2024 1:06 P M EST Height 149.9 cm (4' 11 ) 06/26/2024 1:06 PM EST Body Mass Index 37.49 06/26/2024 1:06 PM EST documented in this encounter Progress Notes * Tatiana Putnam CNM - 06/26/2024 1:00 PM EST Subjective Patient ID: Citlalli Julien is a 58 y.o. 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 Mammogram ordered last month. She would like to get it at [facility] as she lives in [place]. Broke up with AMAB partner about 1 month ago, would like STI testing. Hep C neg, Hep B immune 09/2023. Notes some vaginal discharge, no other vaginal/urinary symptoms. Has rash on her breast she would like checked as well as cyst in left labia that has been present for many years. Menopausal in early 50s, no bleeding since then. History of finger fracture, no other fractures. Doesn't know if either parent had a hip fracture. Review of Systems Genitourinary: Positive for vaginal discharge. Negative for dyspareunia, dysuria, frequency, genital sores, hematuria, menstrual problem, pelvic pain, urgency, vaginal bleeding and vaginal pain. No abnormal pap, no abnormal bleeding, no breast pain, no breast mass, no nipple discharge Skin: Positive for rash. Objective BP 104/64 (BP Location: Left arm, Patient Position: Sitting, BP Cuff Size: Large adult) Pulse 66 Temp 97.3 ??F (36.3 ??C) (Temporal) Resp 20 Ht 4' 11 (1.499 m) Wt 185 lb 9.6 oz (84.2 kg) SpO2 98% BMI 37.49 kg/m?? Physical Exam Constitutional: Appearance: Normal appearance. Chest: Breasts: Right: Normal. No swelling, bleeding, inverted nipple, mass, nipple discharge, skin change or tenderness. Left: Normal. No swelling, bleeding, inverted nipple, mass, nipple discharge, skin change or tenderness. Comments: Rash under left breast, well demarcated, consistent with lyndsey. Abdominal: General: A surgical scar is present. Comments: Vertical incision from c-sections Genitourinary: Labia: Right: No rash, tenderness, lesion or injury. Left: No rash, tenderness, lesion or injury. Vagina: Normal. No signs of injury and foreign body. No vaginal discharge, erythema, tenderness, bleeding or lesions. Cervix: No cervical motion tenderness, discharge, friability, lesion, erythema, cervical bleeding or eversion. Uterus: Normal. Not enlarged and not tender. Adnexa: Right adnexa normal and left adnexa normal. Right: No mass, tenderness or fullness. Left: No mass, tenderness or fullness. Comments: Ovaries non palpable bilaterally. Fair tone with Kegels, no prolapse with Valsalva Just under 2 cm cyst in left labia majora, no redness/exudate. Lymphadenopathy: Upper Body: Right upper body: No supraclavicular or axillary adenopathy. Left upper body: No supraclavicular or axillary adenopathy. Neurological: Mental Status: She is alert. Psychiatric: Mood and Affect: Mood normal. Behavior: Behavior normal. Assessment/Plan Diagnoses and all orders for this visit: Cervical cancer screening - Pap Smear Cotest today. Repeat 5 y if normal/HPV negative. Will contact with results. Will have [place] fax mammogram order to [facility]. DEXA at 67, sooner if new risk factors. Report bleeding. If yeast/bacterial vaginosis on pap, will treat. Screening examination for venereal disease - STI testing add on (NG, CT, Trich) - HIV-1/2 Antigen and Antibodies, Fourth Generation, with Reflexes - Syphilis Screen; Future Pap based and serum STI labs ordered. Will contact with results. Advised STI testing with new partners. Labial cyst - Referral to [facility] Derm Skin Adult; Future No s/sx infection, but very bothersome. Will refer to derm for removal Candidal skin infection For Nystatin as prescribed. Followup with PCP if no improvement. Other orders - nystatin (Mycostatin) cream; Apply topically 2 times daily for 14 days. documented in this encounter Plan of Treatment Upcoming Encounters Date Type Department Care Team (Late st Contact Info) Description 06/26/2024 2:30 PM EST Office Visit [address] [address] Mina Lan MD [address] [place] [phone] 07/24/2024 2:00 PM EST Clinical Support [address] [address] Debbie Vogel RN Scheduled Orders Name Type Priority Associated Diagnoses Orde r Schedule Pap Smear Pathology and Cytology Routine Cervical cancer screening Ordered: 06/26/2024 STI testing add on (NG, CT, Trich) Pathology and Cytology Routine Screening examination for venereal disease Ordered: 06/26/2024 HIV-1/2 Antigen and Antibodies, Fourth Generation, with Reflexes Lab Routine Screening examination for venereal disease Ordered: 06/26/2024 Syphilis Screen Lab Routine Screening examination for venereal disease Expected: 06/26/2024, Expires: 06/26/2025 Scheduled Referrals Name Type Priority Associated Diagnoses Orde r Schedule Referral to [facility] Derm Skin Adult Outpatient Referral Routine Labial cyst Expected: 06/26/2024 (Approximate), Expires: 06/26/2025 documented as of this encounter Visit Diagnoses Diagnosis Cervical cancer screening- Primary Screening for malignant neoplasm of the cervix Screening examination for venereal disease Labial cyst Other specified noninflammatory disorder of vulva and perineum Candidal skin infection documented in this encounter Additional Health Concerns Assessment Noted Time PHQ-9 Depression Total Score: 7 06/07/19 25 1:09 PM EST documented as of this encounter Care Teams Stonemason Helper Relationship Specialty Start Date End Date Natalie Cuenca DO [address] [place] [id number] PCP - General Family Medicine 05/23/18 documented as of this encounter
--- OUTSIDE RECORDS SUMMARY | 2024-06-26 13:45 | XMS_ITS | Encounter Summary ---
Author Organization [employer] Address [address] [facility] 7t [place] [address] Care Team Providers Care National Sales Executive Name Role Phone Natalie Cuenca DO Primary Care Provider [phone]- [phone] Reason for Visit * Reason Comments Med Change Request Encounter Details Date Type Department Care Team ([facility] st Contact Info) Description 08/16/2023 Refill [facility] MEDICINE [address] [place], [place] [phone] Natalie Cuenca DO [address] [place], [place] [phone] Tobacco use disorder Social History Tobacco Use Types Packs/Day Years Used Date Smoking Tobacco: Every Day Cigarettes Smokeless Tobacco: Never Alcohol Use Standard Drinks/Week Comments Not Currently 0 (1 standard drink = 0.6 oz pur e alcohol) Depression Answer Date Recorded Patient Health Questionnaire-9 Score 18 03/14/2023 Patient Health Questionnaire-9 Score 18 03/14/2023 Last PHQ-9: Questionnaire Data Not on file 1 Housing Stability Answer Date Recorded What is your housing situation today? I have mariah mane 03/08/[address] you li ve. Do you have problems with any of the following? None of the above 03/08/2023 Food Insecurity Answer Date Recorded Within the past 12 months, y ou worried that your food would run out before you got money to buy more: Never True 03/08/2023 Within the past 12 months,th e food you bought just didn't last and you didn't have enough money to get more: Never True Transportation Answer Date Recorded In the past 12 months, has l ack of transportation kept you from medical appts, meetings, work or from getting things needed for daily living? No 03/08/2023 Utilities Answer Date Recorded In the past 12 months, has t he electric, gas, oil or water company threatened to shut off services in your home? No 03/08/2023 Depression Answer Date Recorded Patient Health Questionnaire-2 Score 6 03/14/2023 Comments Unknown Sex and Gender Information Value [...] Description 06/26/2024 2:30 PM EST Office Visit [address] [address] Mina Lan MD [address] [place] [phone] Arrived 07/24/2024 2:00 PM EST Clinical Support [address] [address] Debbie Vogel RN documented as of this encounter Visit Diagnoses Diagnosis Tobacco use disorder documented in this encounter Additional Health Concerns Assessment Noted Time PHQ-9 Depression Total Score: 18 023 8:33 AM EDT documented as of this encounter Care Teams National Sales Executive Relationship Specialty Start Date End Date Natalie Cuenca DO [address] [place] [phone] PCP - General Family Medicine 05/23/18 documented as of this encounter
--- OUTSIDE RECORDS SUMMARY | 2024-06-26 13:45 | XMS_ITS | Encounter Summary ---
Author Organization [facility] Address [address] [facility] 7[address] [place] [address] Care Team Providers Care Csr Technician Name Role Phone Natalie Cuenca DO Primary Care Provider [phone]- [phone] Reason for Visit * Reason Comments Med Refill Encounter Details Date Type Department Care Team (Late st Contact Info) Description 07/24/2022 Refill [facility] [address] [place] [address] [phone] Natalie Cuenca DO [address] [place], [place] [phone] Tobacco use disorder Social History Tobacco Use [...] suspected to have Coronavirus/COVID-19? No / Unsure 07/23/2022 10:18 AM EST documented as of this encounter Plan of Treatment Upcoming Encounters Date Type Department Care Team (Late st Contact Info) Description 06/26/2024 2:30 PM EST Office Visit [facility] [address] [place] [address] Mina Lan MD [address] [place] [address] Arrived 07/24/2024 2:00 PM EST Clinical Support [facility] [address] [place] [address] Debbie Vogel RN documented as of this encounter Visit Diagnoses Diagnosis Tobacco use disorder documented in this encounter Additional Health Concerns Assessment Noted Time PHQ-9 Depression Total Score: 0 06/18/19 23 1:12 PM EST documented as of this encounter Care Teams Csr Technician Relationship Specialty Start Date End Date Natalie Cuenca DO [address] [place] [address] PCP - General Family Medicine 05/23/18 documented as of this encounter
--- OUTSIDE RECORDS SUMMARY | 2024-06-26 13:45 | XMS_ITS | Encounter Summary ---
Author Organization [employer] [facility] Address [address] [facility] [address] [place] [address] Care Team Providers Care Mail Order Clerk Name Role Phone Natalie Cuenca Primary Care Provider [phone]- [phone] Reason for Visit * Reason Comments Med Refill Encounter Details Date Type Department Care Team (Late st Contact Info) Description 01/02/2023 Refill [facility] MEDICINE [address] [place] [address] [phone] Estefani Webster MD [address] [place] [address] [phone] Social History Tobacco Use Types Packs/Day Years [...] Description 06/26/2024 2:30 PM EST Office Visit [address] [phone] Mina Lan MD [address] [place] [address] [phone] Arrived 07/24/2024 2:00 PM EST Clinical Support [address] [address] Debbie Vogel, RN documented as of this encounter Visit Diagnoses Not on filedocumented in this encounter Additional Health Concerns Assessment Noted Time PHQ-9 Depression Total Score: 0 06/18/19 23 1:12 PM EST documented as of this encounter Care Teams Mail Order Clerk Relationship Specialty Start Date End Date Natalie Cuenca DO [address] [place] [address] PCP - General Family Medicine 05/23/18 documented as of this encounter
--- OUTSIDE RECORDS SUMMARY | 2024-06-26 13:45 | XMS_ITS | Encounter Summary ---
Author Organization [employer] Address [address] [facility] 7t [place] [address] Care Team Providers Care Precision Assembler Bench Name Role Phone Natalie Cuenca Primary Care Provider [phone]- [phone] Reason for Visit * Reason Comments RC Recovery Supports Encounter Details Date Type Department Care Team (Late st Contact Info) Description 06/19/2024 Patient Outreach [facility] MEDICINE [address] [place] [address] Jim Soria Recovery Supports Social History Tobacco Use Types Packs/Day Years [...] AM EDT documented as of this encounter Progress Notes * Jim Soria - 06/19/2024 3:16 PM EST I met with Citlalli today. Setting: in person at [facility] Recovery Wellness Goals worked on: Social Stability Action taken/next steps: Attended recovery support group and Offered person centered recovery support Additional comments: ANTELMO Soria documented in this encounter Plan of Treatment Upcoming Encounters Date Type Department Care Team (Late st Contact Info) Description 06/26/2024 2:30 PM EST Office Visit [facility]INE [address] [place] [address] Mina Lan MD [address] [place] [phone] 07/24/2024 2:00 PM EST Clinical Support [address] [address] Debbie Vogel, RN documented as of this encounter Visit Diagnoses Not on filedocumented in this encounter Additional Health Concerns Assessment Noted Time PHQ-9 Depression Total Score: 7 06/07/19 25 1:09 PM EST documented as of this encounter Care Teams Precision Assembler Bench Relationship Specialty Start Date End Date Natalie Cuenca DO [address] [place] [phone] PCP - General Family Medicine 05/23/18 documented as of this encounter
--- OUTSIDE RECORDS SUMMARY | 2024-06-26 13:45 | XMS_ITS | Encounter Summary ---
Author Organization [employer] Address [address] [facility] 7t [place] [address] Care Team Providers Care Clean Up Helper Banquet Name Role Phone Natalie Cuenca DO Primary Care Provider [phone]- [phone] Encounter Details Date Type Department Care Team (Late st Contact Info) Description 06/06/2024 Telephone [employer] [facility] [address] [place], [place] [phone] Natalie Cuenca DO [address] [place], [place] [phone] Social History Tobacco Use Types Packs/Day Years [...] is your housing situation today? I have mariahtarun mane 10/10/[address] you [...] encounter Miscellaneous Notes * Telephone Encounter - Perla Berumen - 06/06/2024 8:35 AM EST error documented in this encounter Plan of Treatment Upcoming Encounters Date Type Department Care Team (Late st Contact Info) Description 06/26/2024 2:30 PM EST Office Visit [facility] MEDICINE [address] [place] [phone] Mina Lan MD [address] [place] [address] 07/24/2024 2:00 PM EST Clinical Support [address] [address] Debbie Vogel, PARAMJIT documented as of this encounter Visit Diagnoses Not on filedocumented in this encounter Additional Health Concerns Assessment Noted Time PHQ-9 Depression Total Score: 10 024 8:39 AM EDT documented as of this encounter Care Teams Clean Up Helper Banquet Relationship Specialty Start Date End Date Natalie Cuenca DO [address] [place] [phone] PCP - General Family Medicine 05/23/18 documented as of this encounter
--- OUTSIDE RECORDS SUMMARY | 2024-06-26 13:45 | XMS_ITS | Encounter Summary ---
Author Organization [employer] Address [address] [facility] 7t [place] [address] Care Team Providers Care Gambling Broker Name Role Phone Natalie Cuenca DO Primary Care Provider [phone]- [phone] Reason for Visit * Reason Onset Date Comments Created In Error 04/11/2024 Encounter Details Date Type Department Care Team ([facility] st Contact Info) Description 04/11/2024 Telephone [facility] MEDICINE [address] [place], [place] [phone] Natalie Cuenca DO [address] [place], [place] [phone] Created In Error Social History Tobacco Use Types Packs/Day Years [...] Description 06/26/2024 2:30 PM EST Office Visit [address] [address] Mina Lan MD [address] [place] [address] Arrived 07/24/2024 2:00 PM EST Clinical Support [address] [address] Debbie Vogel RN documented as of this encounter Visit Diagnoses Not on filedocumented in this encounter Additional Health Concerns Assessment Noted Time PHQ-9 Depression Total Score: 10 024 8:39 AM EDT documented as of this encounter Care Teams Gambling Broker Relationship Specialty Start Date End Date Natalie Cuenca DO [address] [place] [phone] PCP - General Family Medicine 05/23/18 documented as of this encounter
--- OUTSIDE RECORDS SUMMARY | 2024-06-26 13:45 | XMS_ITS | Encounter Summary ---
Author Organization [facility] [employer] Address [address] [facility] 7 [place] [address] Care Team Providers Care Shrimp Picker Name Role Phone Natalie Cuenca DO Primary Care Provider [phone] Reason for Referral * Imaging (STAT) - Closed Specialty Diagnoses / Procedures Referred By Jigna gama Referred To Contact Diagnoses Abnormal mammogram of both breasts Procedures BI US Breast Complete Right Natalie Cuenca DO [address] [place] [address] Phone: tel: fax: [facility] MRI and CT Scan [address] [place] [address] Phone: tel: fax: Referral ID Status Reason Start Date Expiration Date Visits Re quested Visits Authorized [id number] Closed 06/02/2022 11/29/2022 1 1 * Imaging (STAT) - Closed Specialty Diagnoses / Procedures Referred By Jigna gama Referred To Contact Diagnoses Abnormal mammogram of both breasts Procedures BI US Breast Complete Left Natalie Cuenca DO [address] [place] [address] Phone: tel: fax: [facility] MRI and CT Scan [address] [place], [place] Phone: tel: fax: Referral ID Status Reason Start Date Expiration Date Visits Re quested Visits Authorized [id number] Closed 06/02/2022 11/29/2022 1 1 * Imaging (STAT) - Closed Specialty Diagnoses / Procedures Referred By Jigna gama Referred To Contact Diagnoses Abnormal mammogram of both breasts Procedures BI Mammogram Diagnostic Bilateral Natalie Cuenca DO [address] [place] [address] Phone: tel: fax: [facility] MRI and CT Scan [address] [place], [place] Phone: tel: fax: Referral ID Status Reason Start Date Expiration Date Visits Re quested Visits Authorized [id number] Closed 06/02/2022 11/29/2022 1 1 Encounter Details Date Type Department Care Team (Late st Contact Info) Description 06/02/2022 Orders Only [facility] MEDICINE [address] [place] [phone] Natalie Cuenca DO [address] [place] [phone] Abnormal mammogram of both breasts (Primary Dx) Social History Tobacco Use Types Packs/Day Years [...] suspected to have Coronavirus/COVID-19? No / Unsure 06/04/2022 10:04 AM EST documented as of this encounter Plan of Treatment Upcoming Encounters Date Type Department Care Team (Late st Contact Info) Description 06/26/2024 2:30 PM EST Office Visit [facility] [address] [place] [address] Mina Lan MD [address] [place] [address] [phone] 07/24/2024 2:00 PM EST Clinical Support [facility] [address] [place] [address] Debbie Vogel, PARAMJIT Scheduled Orders Name Type Priority Associated Diagnoses Orde r Schedule BI Mammogram Diagnostic Bilateral Imaging STAT Abnormal mammogram of both breasts Expected: 06/02/2022, Expires: 08/01/2023 BI US Breast Complete Left Imaging STAT Abnormal mammogram of both breasts Expected: 06/02/2022, Expires: 08/01/2023 BI US Breast Complete Right Imaging STAT Abnormal mammogram of both breasts Expected: 06/02/2022, Expires: 08/01/2023 documented as of this encounter Visit Diagnoses Diagnosis Abnormal mammogram of both breasts- Primary documented in this encounter Care Teams Shrimp Picker Relationship Specialty Start Date End Date Natalie Cuenca DO [address] [place] [phone] PCP - General Family Medicine 05/23/18 documented as of this encounter
--- OUTSIDE RECORDS SUMMARY | 2024-06-26 13:45 | XMS_ITS | Encounter Summary ---
Author Organization [employer] Address [address] [facility] [address] [place] [address] Care Team Providers Care Errand Runner Name Role Phone Natalie Cuenca DO Primary Care Provider [phone] Reason for Visit * Reason Onset Date Comments Med Refill 01/03/2023 Encounter Details Date Type Department Care Team (Late st Contact Info) Description 01/03/2023 Telephone [facility] MEDICINE [address] [place], [place] [phone] Natalie Cuenca DO [address] [place], [place] [phone] Med Refill Social History Tobacco Use Types Packs/Day Years [...] encounter Miscellaneous Notes * Telephone Encounter - Natalie Godinez LPN - 01/03/2023 2:22 PM EDT Gabapentin was sent to [id number] on 09/20/22 #90 with 3 refills and 90 day supply of baclofen was sent on 11/11/22 to [facility] for refill. * Telephone Encounter - Mariza Echevarria - 01/03/2023 2:16 PM EDT Tc from patient requesting a med refill on medication baclofen 10 mg and gabapentin 300 mg. Please send to [facility]/pharmacy #[id number] - [place], [facility] [phone] [facility] PCP Dr. Cuenca documented in this encounter Plan of Treatment Upcoming Encounters Date Type Department Care Team (Late st Contact Info) Description 06/26/2024 2:30 PM EST Office Visit [address] [phone] Mina Lan MD [address] [place] [phone] Arrived 07/24/2024 2:00 PM EST Clinical Support [address] [address] Debbie Vogel, PARAMJIT documented as of this encounter Visit Diagnoses Not on filedocumented in this encounter Additional Health Concerns Assessment Noted Time PHQ-9 Depression Total Score: 0 06/18/19 23 1:12 PM EST documented as of this encounter Care Teams Errand Runner Relationship Specialty Start Date End Date Natalie Cuenca DO [address] [place] [phone] PCP - General Family Medicine 05/23/18 documented as of this encounter
--- OUTSIDE RECORDS SUMMARY | 2024-06-26 13:45 | XMS_ITS | Encounter Summary ---
Author Organization [employer] Address [address] [facility] 7t [place] [address] Care Team Providers Care Hospice Consultant Name Role Phone Natalie Cuenca DO Primary Care Provider [phone]- [phone] Reason for Visit * Reason Comments Med Refill Encounter Details Date Type Department Care Team ([facility] st Contact Info) Description 04/08/2024 Refill [facility] MEDICINE [address] [place], [place] [phone] Natalie Cuenca DO [address] [place], [place] [phone] Muscle spasm Social History Tobacco Use Types [...] Description 06/26/2024 2:30 PM EST Office Visit [address] [address] Mina Lan MD [address] [place] [address] Arrived 07/24/2024 2:00 PM EST Clinical Support [address] [address] Debbie Vogel, PARAMJIT documented as of this encounter Visit Diagnoses Diagnosis Muscle spasm Spasm of muscle documented in this encounter Additional Health Concerns Assessment Noted Time PHQ-9 Depression Total Score: 10 024 8:39 AM EDT documented as of this encounter Care Teams Hospice Consultant Relationship Specialty Start Date End Date Natalie Cuenca DO [address] [place] [phone] PCP - General Family Medicine 05/23/18 documented as of this encounter
--- OUTSIDE RECORDS SUMMARY | 2024-06-26 13:45 | XMS_ITS | Encounter Summary ---
Author Organization [employer] Address 75 [facility] 7t [place] [address] Care Team Providers Care Sprinkler Inspector Name Role Phone Natalie Cuenca DO Primary Care Provider [phone]- [phone] Reason for Visit * Reason Comments Med Refill Encounter Details Date Type Department Care Team ([facility] st Contact Info) Description 05/13/2024 Refill [facility] MEDICINE [address] [place], [place] [phone] Natalie Cuenca DO 230 [place], [place] [phone] Muscle spasm Social History Tobacco Use Types [...] 06/26/2024 2:30 PM EST Office Visit [address] [address] Mina Lan MD [address] [place] [address] Arrived 07/24/2024 2:00 PM EST Clinical Support [address] [address] Debbie Vogel, PARAMJIT documented as of this encounter Visit Diagnoses Diagnosis Muscle spasm Spasm of muscle documented in this encounter Additional Health Concerns Assessment Noted Time PHQ-9 Depression Total Score: 10 024 8:39 AM EDT documented as of this encounter Care Teams Sprinkler Inspector Relationship Specialty Start Date End Date Natalie Cuenca DO [address] [place] [address] PCP - General Family Medicine 05/23/18 documented as of this encounter
--- OUTSIDE RECORDS SUMMARY | 2024-06-26 13:45 | XMS_ITS | Encounter Summary ---
Author Organization [employer] Address 75 [facility] 7t [place] [address] Care Team Providers Care Dev Technical Mgr Name Role Phone Natalie Cuenca DO Primary Care Provider [phone]- [phone] Reason for Visit * Reason Comments Pre-visit Planning Pre-visit planning - LVM Encounter Details Date Type Department Care Team (Late st Contact Info) Description 05/28/2024 Patient Outreach [facility] MEDICINE [address] [place], [place] [phone] Natalie Cuenca DO 230 [place] [address] Pre-visit Planning (Pre-visit planning - LVM ) Social History Tobacco Use Types Packs/Day Years [...] as of this encounter Progress Notes * Mary Oreilly - 05/28/2024 11:46 AM EST JUVENAL Mendoza placed outbound call to patient to complete pre-visit planning. No answer at this time. Patient name and were not confirmed. CC left voicemail requesting return call. Direct contact information provided. documented in this encounter Plan of Treatment Upcoming Encounters Date Type Department Care Team (Late st Contact Info) Description 06/26/2024 2:30 PM EST Office Visit [facility] MEDICINE [address] [place] [address] Mina Lan MD [address] [place] [address] Arrived 07/24/2024 2:00 PM EST Clinical Support [facility] MEDICINE [address] [place] [address] Debbie Vogel, PARAMJIT documented as of this encounter Visit Diagnoses Not on filedocumented in this encounter Additional Health Concerns Assessment Noted Time PHQ-9 Depression Total Score: 10 024 8:39 AM EDT documented as of this encounter Care Teams Dev Technical Mgr Relationship Specialty Start Date End Date Natalie Cuenca DO [address] [place] [address] PCP - General Family Medicine 05/23/18 documented as of this encounter
--- OUTSIDE RECORDS SUMMARY | 2024-06-26 13:45 | XMS_ITS | Encounter Summary ---
Author Organization [employer] Address 75 [facility] 7t [place] [address] Care Team Providers Care Sheeter Machine Operator Name Role Phone SamuelNatalie dumont Primary Care Provider Encounter Details Date Type Department Care Team (Latest Contact Info) Description 06/06/2024 Travel Social History Tobacco Use Types Packs/Day [...] Description 06/26/2024 2:30 PM EST Office Visit [address] [address] Mina Lan MD [address] [place] [address] 07/24/2024 2:00 PM EST Clinical Support [address] [address] Debbie Vogel RN documented as of this encounter Visit Diagnoses Not on filedocumented in this encounter Additional Health Concerns Assessment Noted Time PHQ-9 Depression Total Score: 10 024 8:39 AM EDT documented as of this encounter Care Teams Sheeter Machine Operator Relationship Specialty Start Date End Date Natalie Cuenca DO [address] [place] [phone] PCP - General Family Medicine 05/23/18 documented as of this encounter
--- OUTSIDE RECORDS SUMMARY | 2024-06-26 13:45 | XMS_ITS | Encounter Summary ---
Author Organization [employer] Address 75 [facility] 7t [place] [address] Care Team Providers Care Top Closer Name Role Phone Natalie Cuenca DO Primary Care Provider [phone]- [phone] Encounter Details Date Type Department Care Team (Late st Contact Info) Description 05/03/2024 Telephone [facility] MEDICINE [address] [place], [place] [phone] Natalie Cuenca DO [address] [place], [place] [phone] Social History Tobacco Use Types Packs/Day Years [...] Description 06/26/2024 2:30 PM EST Office Visit [address] [address] Mina Lan MD [address] [place] [address] Arrived 07/24/2024 2:00 PM EST Clinical Support [address] [address] Debbie Vogel RN documented as of this encounter Visit Diagnoses Not on filedocumented in this encounter Additional Health Concerns Assessment Noted Time PHQ-9 Depression Total Score: 10 024 8:39 AM EDT documented as of this encounter Care Teams Top Closer Relationship Specialty Start Date End Date Natalie Cuenca DO [address] [place] [address] PCP - General Family Medicine 05/23/18 documented as of this encounter
--- OUTSIDE RECORDS SUMMARY | 2024-06-26 13:45 | XMS_ITS | Encounter Summary ---
Author Organization [employer] [facility] Address 75 [facility] 7t [place] [address] Care Team Providers Care Director Of Planning Name Role Phone SamuelNatalie dumont Primary Care Provider [phone]- [phone] Reason for Referral * Imaging (Routine) - Closed Specialty Diagnoses / Procedures Referred By Contgerardo t Referred To Contact Radiology Diagnoses Encounter for adult wellness visit Procedures BI Mammogram Diagnostic Tomosynthesis Bilateral Ayse Gutiérrez MD [address] [place] [address] Phone: tel: fax: [facility] Referral ID Status Reason Start Date Expiration Date Visits Re quested Visits Authorized [id number] Closed 06/07/2024 06/07/2025 1 1 Reason for Visit * Reason Comments Annual Exam Encounter Details Date Type Department Care Team (Late st Contact Info) Description 06/06/2024 2:00 PM EST Office Visit [facility] MEDICINE [address] [place] [address] Ayse Gutiérrez MD [address] [place] [address] Chronic bilateral low back pain without sciatica (Primary Dx); Encounter for adult wellness visit Social History Tobacco Use Types Packs/Day Years [...] Sign Reading Time Taken Comments Blood Pressure 127/69 06/06/2024 2:04 PM EST Pulse 64 06/06/2024 2:43 PM EST Temperature 36.9 ??C (98.4 ??F) 06/06/2024 2:04 PM ES T Respiratory Rate 18 06/06/2024 2:43 PM EST Oxygen Saturation 98% 06/06/2024 2:04 PM EST Inhaled Oxygen Concentration - - Weight 83.7 kg (184 lb 9.6 oz) 06/06/2024 2:04 P M EST Height - - Body Mass Index 38.58 02/10/2024 9:59 AM EDT documented in this encounter Progress Notes * Jessie Jean CNP - 06/06/2024 2:00 PM EST Subjective Patient ID: Citlalli Julien is a 58 y.o. female w/ hx of polysubstance use, HLD, mild persistent asthma, MDD, STIVEN, and PTSD who presents for wellness exam. Denies recent illness or hospitalization.Pt has cast over right wirst and thumb, she reports that she broke her thumb at work and she is being seen at [facility], using ibuprofen 800mg for pain control. Pt attends recovery groups and also receives individual therapy for behavioral health. Pt on sublocade 300 mg monthly for opioid dependence Smoking right now, 4 cigarettes a day, interested in quitting but doesn't want pharmacological intervention. Mammo- not UTD Pap smear: UTD, last pap 01/2023 NILM, HPV Neg Review of Systems Constitutional: Negative for chills, fatigue, fever and unexpected weight change. HENT: Negative. Eyes: Negative. Respiratory: Negative for choking, chest tightness, shortness of breath and wheezing. Cardiovascular: Negative for chest pain and palpitations. Gastrointestinal: Negative. Genitourinary: Negative for difficulty urinating, dyspareunia, dysuria, flank pain, frequency, genital sores, vaginal bleeding, vaginal discharge and vaginal pain. Musculoskeletal: Positive for back pain. Skin: Negative. Neurological: Negative. Psychiatric/Behavioral: Negative. Objective Visit Vitals BP 127/69 Pulse 64 Temp 98.4 ??F (36.9 ??C) (Oral) Resp 18 Wt 184 lb 9.6 oz (83.7 kg) SpO2 98% BMI 38.58 kg/m?? Smoking Status Every Day BSA 1.85 m?? Physical Exam Constitutional: General: She is not in acute distress. Appearance: Normal appearance. She is not ill-appearing, toxic-appearing or diaphoretic. HENT: Head: Normocephalic and atraumatic. Right Ear: Tympanic membrane, ear canal and external ear normal. There is no impacted cerumen. Left Ear: Tympanic membrane, ear canal and external ear normal. There is no impacted cerumen. Nose: Nose normal. No congestion or rhinorrhea. Mouth/Throat: Mouth: Mucous membranes are moist. Pharynx: Oropharynx is clear. No oropharyngeal exudate or posterior oropharyngeal erythema. Eyes: General: Right eye: No discharge. Left eye: No discharge. Extraocular Movements: Extraocular movements intact. Pupils: Pupils are equal, round, and reactive to light. Cardiovascular: Rate and Rhythm: Normal rate and regular rhythm. Pulses: Normal pulses. Heart sounds: Normal heart sounds. No murmur heard. No friction rub. No gallop. Pulmonary: Effort: Pulmonary effort is normal. No respiratory distress. Breath sounds: Normal breath sounds. No stridor. No wheezing, rhonchi or rales. Abdominal: General: Abdomen is flat. Bowel sounds are normal. There is no distension. Palpations: There is no mass. Tenderness: There is no abdominal tenderness. There is no guarding. Musculoskeletal: General: Signs of injury present. Cervical back: Normal range of motion. No tenderness. Comments: Right wrist and thumb in hard cast Lymphadenopathy: Cervical: No cervical adenopathy. Skin: General: Skin is warm and dry. Capillary Refill: Capillary refill takes less than 2 seconds. Neurological: General: No focal deficit present. Mental Status: She is alert and oriented to person, place, and time. Mental status is at baseline. Cranial Nerves: No cranial nerve deficit. Sensory: No sensory deficit. Motor: No weakness. Coordination: Coordination normal. Gait: Gait normal. Deep Tendon Reflexes: Reflexes normal. Psychiatric: Mood and Affect: Mood normal. Behavior: Behavior normal. Assessment/Plan Problem List Items Addressed This Visit Chronic bilateral low back pain without sciatica - Primary No red flags, no saddle anesthesia, weakness, numbness, tingling in lower extremities, denies changes in urination or bowel movements. Advised pt to use hot/cold therapy, tylenol and ibuprofen for pain control. Patient may RTC if symptoms worsen or do not improve. Encounter for adult wellness visit Physical exam wnl today Mammo due, new orders placed today Pt will benefit from memory screening as well as ADLs and IADLs assessed. Recommended f/u for pelvic exam, pap alone due, pap/HPV cotesting due 01/2026. Advised pt to stop smoking, she is motivated, declines pharmacological support at this time documented in this encounter Miscellaneous Notes * Assessment & Plan Note - Jessie Jean CNP - 06/06/2024 3:56 PM EST Associated Problem(s): Encounter for adult wellness visit Physical exam wnl today Mammo due, new orders placed today Pt will benefit from memory screening as well as ADLs and IADLs assessed. Recommended f/u for pelvic exam, pap alone due, pap/HPV cotesting due 01/2026. Advised pt to stop smoking, she is motivated, declines pharmacological support at this time * Assessment & Plan Note - Jessie Jean CNP - 06/06/2024 3:54 PM EST Associated Problem(s): Chronic bilateral low back pain without sciatica No red flags, no saddle anesthesia, weakness, numbness, tingling in lower extremities, denies changes in urination or bowel movements. Advised pt to use hot/cold therapy, tylenol and ibuprofen for pain control. Patient may RTC if symptoms worsen or do not improve. documented in this encounter Plan of Treatment Upcoming Encounters Date Type Department Care Team (Late st Contact Info) Description 06/26/2024 2:30 PM EST Office Visit [facility] MEDICINE [address] [place] [address] Mina Lan MD [address] [place] [address] 07/24/2024 2:00 PM EST Clinical Support [facility] MEDICINE [address] [place] [phone] Debbie Vogel RN Scheduled Orders Name Type Priority Associated Diagnoses Orde r Schedule BI Mammogram Diagnostic Tomosynthesis Bilateral Imaging Routine Encounter for adult wellness visit Expected: 06/07/2024 (Approximate), Expires: 08/04/2025 documented as of this encounter Visit Diagnoses Diagnosis Chronic bilateral low back pain without sciatica- Primary Encounter for adult wellness visit documented in this encounter Additional Health Concerns Assessment Noted Time PHQ-9 Depression Total Score: 10 024 8:39 AM EDT documented as of this encounter Care Teams Director Of Planning Relationship Specialty Start Date End Date Natalie Cuenca DO [address] [place] [address] PCP - General Family Medicine 05/23/18 documented as of this encounter
--- OUTSIDE RECORDS SUMMARY | 2024-06-26 13:45 | XMS_ITS | Clinical Summary ---
Author Organization [employer] Address [address] [facility] 7t h Floor [place] [id number] Care Team Providers Care Eye Clinic Manager Name Role Phone Natalie Cuenca Primary Care Provider [phone] Allergies No known active allergies Medications * This document contains information received from the source organization and may not represent a complete record from that organization. sennosides (Senokot) 8.6 MG tablet Take 2 tablets by mouth if needed each day. At bedtime as needed for constipation 03/17/20 Active fluticasone (Flovent) 110 MCG/ACT inhaler Inhale 1 puff in the morning and at bedtime. 03/17/20 22 Active docusate sodium (Colace) 100 MG capsule Take 1 capsule by mouth if needed in the morning and at bedtime. 03/17/20 22 Active naloxone (Narcan) 4 mg/0.1 mL nasal spray Administer 0.1 mL into affected nostril(s) if needed. [place] in 1 nostril may repeat dose every 2-3 minutes as needed alternating nostrils with each dose 12/03/19 21 Active albuterol (2.5 MG/3ML) 0.083% nebulizer solution Inhale 3 mL every 4 (four) hours if needed. For cough, wheeze or SOB 11/15/19 21 Active traZODone (Desyrel) 50 MG tablet Take 1-2 tablets by mouth if needed at bedtime. Active sertraline (Zoloft) 100 MG tablet Take 1.5 tablets by mouth 1 (one) time each day. Active prazosin (Minipress) 2 MG capsule Take 1 capsule by mouth every 12 (twelve) hours. Active acamprosate (Campral) 333 MG EC tablet Take 666 mg by mouth in the morning, at noon, and at bedtime. 2 tablets PO TID. May take with food. Active Respiratory Therapy Supplies (Nebulizer/Tub ing/Mouthpiece ) kit 1 kit. Apply to inhalation route as directed Active Nebulizers (AeroEclipse II Nebulizer) misc Use with albuterol as directed Active nicotine polacrilex (Nicorelief) 2 MG gum Chew 1 piece of gum every 4 hours instead of a cigarette. 30 each 08/14/19 23 Active betamethasone valerate (Valisone) 0.1 % cream APPLY TO AFFECTED AREA TWICE A DAY 30 g 10/31/19 24 Active gabapentin (Neurontin) 300 MG capsule TAKE 1 CAPSULE BY MOUTH THREE TIMES A DAY 90 capsule 3 01/02/20 24 Active Varenicline Tartrate, Starter, 0.5 MG X 11 & 1 MG X 42 tablet therapy packIndication s:Tobacco use disorder TAKE 0.5 MG BY MOUTH IN THE MORNING FOR 3 DAYS, THEN 0.5 MG 2 TIMES DAILY FOR 4 DAYS, THEN 1 MG 2 TIMES DAILY FOR 21 DAYS. 53 each 01/10/20 24 Active atorvastatin (Lipitor) 20 MG tablet TAKE 1 TABLET BY MOUTH EVERYDAY AT BEDTIME 90 tablet 1 01/10/20 24 Active Multiple Vitamin (Multi-Vitamin ) tablet TAKE 1 TABLET BY MOUTH EVERY DAY 90 tablet 1 01/10/20 24 Active fluticasone furoate (Arnuity Ellipta) 100 MCG/ACT inhaler Inhale 1 puff Once per day. Rinse mouth with water after use to reduce aftertaste and incidence of candidiasis. Do not swallow. 1 each 02/10/20 24 025 Active albuterol 108 (90 Base) MCG/ACT inhaler Inhale 2 puffs every 4 (four) hours if needed for wheezing or shortness of breath. 18 g 1 02/10/20 24 025 Active buPROPion XL (Wellbutrin XL) 300 MG 24 hr tablet 02/26/20 24 Active sertraline (Zoloft) 25 MG tablet 04/18/20 23 Active baclofen (Lioresal) 10 MG tabletIndicati ons:Muscle spasm TAKE 1 TABLET BY MOUTH IF NEEDED IN THE MORNING AND 1 TABLET AT BEDTIME FOR MUSCLE SPASMS. 180 tablet 03/06/20 24 Active Sublocade 300 MG/1.5ML injectionIndic ations:Uncompl icated opioid dependence (CMS/HCC) INJECT 1.5 ML SUBCUTANEOUSLY EVERY MONTH TO ABSORB CONTINUALLY 1.5 mL 5 04/13/20 24 Active Bacitracin-Baron ymyxin B ([facility] Poly Bacitracin) 500-71251 UNIT/GM ointment APPLY TO AFFECTED AREA TWICE A DAY 28 g 05/01/20 24 Active ARIPiprazole (Abilify) 5 MG tablet Take 2 tablets (10 mg) by mouth at bedtime. 60 tablet 3 05/04/20 24 Active oxyCODONE (Roxicodone) 5 MG immediate release tablet 5 mg. 05/09/20 24 Active nystatin (Mycostatin) cream Apply topically 2 times daily for 14 days. 30 g 1 06/26/19 25 025 Active nicotine (Nicoderm CQ) 14 MG/24HR patchIndicatio ns:Tobacco use disorder Place 1 patch on the skin 1 (one) time each day at the same time. 30 patch 09/06/19 24 025 Discontin ued(Ineff ective) nicotine (Nicoderm CQ) 14 MG/24HR patchIndicatio ns:Tobacco use disorder Place 1 patch on the skin 1 (one) time each day at the same time. 30 patch 09/06/19 24 025 Discontin ued(Ineff ective) varenicline (Chantix) 1 MG tabletIndicati ons:Tobacco use disorder TAKE 1 TABLET BY MOUTH TWICE A DAY. TAKE WITH FULL GLASS OF WATER. 60 tablet 1 02/01/20 24 025 Discontin ued(Ineff ective) naproxen (Naprosyn) 500 MG tablet Take 1 tablet (500 mg) by mouth 2 times daily. 40 tablet 1 02/10/20 24 025 Discontin ued(Ineff ective) ibuprofen 600 MG tabletIndicati ons:Chronic bilateral low back pain without sciatica Take 1 tablet (600 mg) by mouth 3 times daily for 10 days. 30 tablet 06/06/19 25 025 Discontin ued(Enter ed in error) Hospital, Clinic, or Other Facility Administered Medication Ordered Dose Route Frequency Start Date End Date Status buprenorphine ER (Sublocade) 300 mg/1.5mL injection 1 eachIndications:Opioid type dependence, continuous (CMS/HCC) 1 each SC Over 1 month 05/29/2024 05/29/2024 En ded Active Problems Problem Noted Date Diagnosed Date Chronic bilateral low back pain without sciatica 06/06/2024 Assessment & Plan (06/06/2024 3:54 PM EST): No red flags, no saddle anesthesia, weakness, numbness, tingling in lower extremities, denies changes in urination or bowel movements. Advised pt to use hot/cold therapy, tylenol and ibuprofen for pain control. Patient may RTC if symptoms worsen or do not improve. Encounter for adult wellness visit 06/06/2024 Assessment & Plan (06/06/2024 4:07 PM EST): Physical exam wnl today Mammo due, new orders placed today Pt will benefit from memory screening as well as ADLs and IADLs assessed. Recommended f/u for pelvic exam, pap alone due, pap/HPV cotesting due 01/2026. Advised pt to stop smoking, she is motivated, declines pharmacological support at this time Hot flashes 10/10/2023 STIVEN (generalized anxiety disorder) 03/14/2023 Major depression, recurrent, chronic 10/26/2022 Assessment & Plan (03/14/2023 9:10 AM EDT): Naz reports anhedonia, feeling depressed and hopeless, little energy, poor appetite, guilt, trouble concentrating, speaking and moving slowly, and thoughts of . She denies SI/HI, but does report having thoughts throughout the past weeks. She also reports feeling anxious, not being able to control worry, worrying about different things, trouble relaxing, feeling restless, irritable, and fearfulness. PHQ7: 18 GAD7: 17 At this time Naz Julien meets criteria for Visit Diagnoses: Problem List Items Addressed This Visit Other Opioid dependence (CMS/HCC) STIVEN (generalized anxiety disorder) Major depression, recurrent, chronic (CMS/HCC) Patient ready to address current needs Yes Strengths include: Reaches out for support, willingness to engage, follows recommendations. PLAN: 1. Follow up with C: Not recommended for follow-up 2. Patient goal is to maintain recovery, and improve MH 3. Behavioral Recommendations a. Follow up with current therapist b. Restart psychiatric medication c. Reach out as needed for support Polysubstance abuse 10/26/2022 Mild persistent asthma 04/19/2022 BMI 38.0-38.9,adult 04/19/2022 Post traumatic stress disorder 01/28/2017 Alcohol dependence 03/18/2015 Cocaine dependence 03/18/2015 Hyperlipidemia 03/18/2015 Opioid dependence 03/18/2015 Tobacco dependence 03/18/2015 Vitamin D deficiency 03/18/2015 Resolved Problems Problem Noted Date Diagnosed Date Resolved Date Asthma 10/26/2022 10/26/2022 Major depression 09/10/2022 10/26/2022 Recurrent major depression 01/28/2017 0 10/26/2022 Encounters * This document contains information received from the source organization and may not represent a complete record from that organization. Date Type Department Care Team Description 06/26/2024 1:00 PM EST Procedure Visit [address] [address] Tatiana Putnam CNM Cervical cancer screening (Primary Dx); Screening examination for venereal disease; Labial cyst; Candidal skin infection 06/19/2024 Patient Outreach [address] [address] Jim Soria Recovery Supports 06/19/2024 Travel 06/06/2024 2:00 PM EST Office Visit [address] [address] Ayse Gutiérrez MD Chronic bilateral low back pain without sciatica (Primary Dx); Encounter for adult wellness visit 06/06/2024 Travel 06/06/2024 Telephone [facility] [address] [place] [address] Natalie Cuenca DO 06/05/2024 Patient Outreach [address] [address] Jasvir Justice Recovery Supports 06/05/2024 Travel 05/29/2024 1:00 PM EST Clinical Support [address] [address] Debbie Vogel RN Opioid type dependence, continuous (CMS/HCC) (Primary Dx) 05/29/2024 Patient Outreach [address] [place] [address] Jim Soria Support Groups 05/29/2024 Travel 05/28/2024 Patient Outreach [facility] [place] [address] Natalie Cuenca DO Pre-visit Planning (Pre-visit planning - LVM ) 05/13/2024 Refill [facility] [place] [address] Natalie Cuenca DO Muscle spasm 05/10/2024 Telephone [facility] [place] [address] Natalie Cuenca DO Chart Prep 05/08/2024 Patient Outreach [facility] [place] [address] Jasvir Justice Recovery Supports 05/03/2024 Telephone [facility] [place] [address] Natalie Cuenca DO 05/03/2024 Refill [facility] [place] [address] Natalie Cuenca DO 05/01/2024 1:00 PM EST Clinical Support [facility] [place] [address] Debbie Vogel, PARAMJIT Opioid type dependence, continuous (CMS/HCC) (Primary Dx) 05/01/2024 Patient Outreach [facility] [place] [address] Jim Soria 05/01/2024 Travel 04/29/2024 Refill [facility] [address] Lis Ferrer MD 04/25/2024 Patient Outreach [facility] [place] [address] Jim Soria 04/24/2024 Travel 04/13/2024 Refill [facility] [place] [address] Abel Jones MD Uncomplicated opioid dependence (CMS/HCC) 04/11/2024 Telephone [facility] [place] [address] Natalie Cuenca DO Created In Error 04/10/2024 Patient Outreach [facility] [address] [place] [address] Jim Soria 04/09/[address] [address] Natalie Cuenca DO Med Refill 04/08/2024 Refill [facility] [address] [place] [address] Natalie Cuenca DO Muscle spasm 04/03/2024 Patient Outreach [facility] [address] [place] [address] Jim Soria 03/27/2024 1:30 PM EST Clinical Support [address] [address] Deena Perez, PARAMJIT Opioid dependence in remission ([facility]) (Primary Dx); Tobacco use disorder 03/27/2024 Travel from Last 3 Months Immunizations Name Administration Dates Next Due Hep A, Adult 07/08/2023,01/05/2013 Hep B, adult 07/08/2023,04/07/2007,03/01/2007 Influenza injectable quadriv alent IIV4 with preservative 04/11/2018,03/18/2015 Influenza injectable quadriv alent preservative free 05/03/2023,02/20/2022,02/13/2021,04/23,02/17/2017 Influenza, IIV3, injectable 03/15/2019, 7 Influenza, seasonal, injecta ble, preservative free 02/10/2024 Moderna Covid-19 Vaccine 12+ 10/30/2021, 07/01/2021,11/25/2020,10/10 Moderna Covid-19 Vaccine 6+ Bivalent 05/14/2022 Pfizer Covid-19 Vaccine 12+ 02/10/2024, 3 Pneumococcal Conjugate PCV 20 03/17/2022 Pneumococcal Polysaccharide PPSV23 03/16/2019 TD (adult), 2 Lf tetanus tox oid, preservative free, adsorbed 08/18/2014 Tdap 02/13/2021,08/07/2009 Zoster, Recombinant 10/26/2022,12/09/2021 Social History Tobacco Use Types Packs/Day Years Used Date Smoking Tobacco: Every Day Cigarettes Passive Smoke Exposure: Never Smokeless Tobacco: Never Tobacco Cessation:Ready to Q uit: Not Asked; Counseling Given: Not Answered Alcohol Use Standard Drinks/Week Comments Not Currently [...] or Koenig 03/22/2022 10 :14 AM EDT Last Filed Vital Signs Vital Sign Reading [...] Mass Index 37.49 06/26/2024 1:06 PM EST Plan of Treatment Upcoming Encounters Date Type Department Care Team (Late st Contact Info) Description 06/26/2024 2:30 PM EST Office Visit [facility] [address] [place] [phone] Mina Lan MD [address] [place] [address] 07/24/2024 2:00 PM EST Clinical Support [address] [address] Debbie Vogel, PARAMJIT Health Maintenance Due Date Last Done Comments CT Colonography 1967 FIT DNA/Cologuard 1967 FIT 1967 FOBT 1967 Sigmoidoscopy 1967 Diagnostic Breast Imaging 03/06/2024 07/26/2022 SDOH Screening 10/09/2024 10/10/2023 Alcohol/Substance Use Screening 06/06/2025 06/06/2024 Depression Screening 06/07/2025 06/07/2024, 06/07/19 25 Tobacco Screening 06/26/2025 06/26/2024 Cervical Cancer Screening 02/17/2026 HPV/Cotest 02/17/2026 02/17/2021, 03/18/2017 Pap Smear 02/17/2026 02/17/2021 Colonoscopy 07/20/2026 07/20/2021 Colorectal Cancer Screening 07/20/2026 Lipid Panel 10/10/2028 2023, 04/22, 04/05/2022, Additional history exists DTaP/Tdap/Td Vaccines (4 - Td or Tdap) 02/13/2031 02/13/2021, 08/18/2014, 08/07/2009 RSV Patients and Patients Aged 60 years or older (1 - 1-dose 75+ series) 10/10/2042 Pneumococcal Vaccine: 50+ Years Completed 03/17/2022, 03/16/2019 Zoster Vaccines Completed 10/26/2022, 12/09/2021 Hepatitis A Vaccines Completed 07/08/2023, 01/06/20 13 Hepatitis B Vaccines Completed 07/08/2023, 04/07/2007, 03/01/2007 HIV Screening Completed 2023, 03/23, 11/06/2021, Additional history exists Hepatitis C Screening Completed 2023 , 04/05/2022, 11/06/2021, Additional history exists COVID-19 Vaccine Completed 02/10/2024, 04/2023, 05/14/2022, Additional history exists Influenza Vaccine Completed 02/10/2024, , 02/20/2022, Additional history exists HIB Vaccines Aged Out No longer eligi ble based on patient's age to complete this topic HPV Vaccines Aged Out No longer eligi ble based on patient's age to complete this topic IPV Vaccines Aged Out No longer eligi ble based on patient's age to complete this topic Meningococcal Vaccine Aged Out No tashi prashant eligible based on patient's age to complete this topic RSV under 20 months Aged Out No longe r eligible based on patient's age to complete this topic Rotavirus Vaccines Aged Out No longer eligible based on patient's age to complete this topic Procedures Procedure Name Priority Date/Time Associated Diagnosis Comments POCT ALYSSA-14 URINE DRUG SCREEN Routine 05/29/2024 2:01 PM EST Opioid type dependence, continuous (CMS/HCC) POCT ALYSSA-14 URINE DRUG SCREEN Routine 05/01/2024 1:09 PM EST Opioid type dependence, continuous (CMS/HCC) POCT ALYSSA-14 URINE DRUG SCREEN Routine 03/27/2024 1:50 PM EST Opioid dependence in remission (CMS/HCC) HEPATITIS C AB W/REFL TO HCV RNA, QN, PCR Routine 2023 3:08 PM EDT Healthcare maintenance HIV 1/2 ANTIGEN/ANTIBODY, FOURTH GENERATION W/RFL Routine 2023 3:08 PM EDT Healthcare maintenance LIPID PANEL, STANDARD Routine 2023 3:08 PM EDT Tremor HM MAMMOGRAPHY Routine 07/26/2022 HM COLONOSCOPY Routine 07/20/2021 10:16 AM EST HPV MRNA E6/E7 REFLEX TO HPV 16, 18/45 Routine 02/17/2021 11:09 AM EDT THINPREP IMAGING SYSTEM PAP Routine 02/17/2021 11:09 AM EDT from Last 3 Months or Most Recently Relevant to Health Maintenance Results * POCT ALYSSA-14 Urine Drug Screen (05/29/2024 2:01 PM EST) Only the most recent of3 resultswithin the time period is included. THC Negative Cocaine Screen, Urine Negative Opiate Screen, Urine Negative Methamphetamine Screen Urine Negative Amphetamine Screen, Urine Negative Benzodiazepines Screen, Urine Negative Barbiturate Screen, Urine Negative Methadone Screen, Urine Negative Buprenophine Screen, Urine Positive TCA, Urine Negative MDMA Urine Negative ng/mL Oxycodone Screen, Urine Negative Phencyclidine (PCP), Urine Negative Propoxyphene, Urine Negative Fentanyl, Urine Negative Urine Urine specimen obtained by clean catch procedure / Unknown 05/29/2024 2:01 PM EST Mina Lan MD POINT OF CARE TEST ENTER/EDIT OR DERABLES Final Result * Hepatitis C Antibody with Reflex to HCV, RNA, Quantitative, Real-Time PCR (2023 3:08 PM EDT) Pathologist [facility] Hepatitis C Antibody Nonreactive Nonreactive [facility] Comment:Antibodies to HCV no t detected; does not exclude early acuteHCV infection. Blood Venous blood specimen / Unknown 2023 3:08 PM EDT 2023 4:11 PM EDT Natalie Cuenca DO LAB BLOOD ORDERABLES Final R esult Performing Organization Address [facility] Co de Phone Number [facility] [address] [place] [phone] [phone] * HIV-1/2 Antigen and Antibodies, Fourth Generation, with Reflexes (2023 3:08 PM EDT) HIV AB/AG Nonreactive Nonreactive [facility] Comment:HIV-1 p24 Ag and/or HIV-1/HIV-2 Ab not detected.A test result that is nonreactive does not exclude thepossibility of exposure to or infection with HIV-1 and/orHIV-2. Nonreactive results in this assay for individualswith prior exposure to HIV-1 and/or HIV-2 may be due toantigen and antibody levels that are below the limit ofdetection of this assay.The [employer] HIV Ag/Ab Combo assay result andsupplemental assay results should be interpreted inconjunction with the patient's clinical presentation,history and other laboratory results. If the results areinconsistent with clinical evidence, additional testing issuggested to confirm the result. Blood Venous blood specimen / Unknown 2023 3:08 PM EDT 2023 4:11 PM EDT Natalie Bang DO LAB BLOOD ORDERABLES Final R esult Performing Organization Address City/[facility]/ZIP Co de Phone Number [facility] [address] [place] [address] [phone] * Lipid Panel, Standard (2023 3:08 PM EDT) Triglycerides 100 <150 mg/dL [facility] Comment:Desirable Triglyceri de: less than 150 mg/dLBorderline High Triglyceride 150-199 mg/dLHigh Triglyceride: 200-499 mg/dLVery High Triglyceride: greater than or equal to 5OO mg/dL Cholesterol 157 <200 mg/dL [facility] Comment:Desirable Cholestero l: less than 200 mg/dLBorderline High Cholesterol: 200-239 mg/dLHigh Cholesterol: greater than 239 mg/dL LDL Cholesterol Calculated 82 <100 mg/dL [facility] Comment:Desirable LDL: less than 100 mg/dLNear Optimal/Above Optimal LDL: 110- 129 mg/dLBorderline High LDL: 130-159 mg/dLHigh LDL: 160-189 mg/dLVery High LDL: greater than or equal to 190 mg/dL HDL Cholesterol 55 >40 mg/dL [facility] Comment:Desirable HDL: great er than 40 mg/dL Note: This HDL assay may give artificially low results in patients with liver disease. Blood Venous blood specimen / Unknown 2023 3:08 PM EDT 2023 4:11 PM EDT Natalie Cuenca DO LAB BLOOD ORDERABLES Final R esult Performing Organization Address City/State/[facility] Co de Phone Number [facility] [address] [place] [phone] * Mammography (07/26/2022) Mammogram birads 3- probably benign Anatomical Region Laterality Modality Other Historical Provider MD HEALTH MAINTENANCE Final Result * Colonoscopy (07/20/2021 10:16 AM EST) Historical Provider HEALTH MAINTENANCE Final Result * THINPREP TIS PAP (02/17/2021 11:09 AM EDT) Clinical Information: None given [facility] COMMENT SEE COMMENT [facility] Comment: EXPLANATORY NOTE: ? The Pap is a screening test for cervical cancer. It is ?? not a diagnostic test and is subject to false negative ?? and false positive results. It is most reliable when a ?? satisfactory sample, regularly obtained, is submitted ?? with relevant clinical findings and history, and when ?? the Pap result is evaluated along with historic and ?? current clinical information. ?? COMMENT: This Pap test has been evaluated with computer assisted technology. [facility] Director Of Corporate Sales : SEE COMMENT [facility] Comment: SXA, CT(ASCP) CT screening location: [address] ??[phone] Interpretation/R esult: Negative for intraepithelial lesion or malignancy. [facility] LMP: NONE GIVEN [facility] Prev. BX: NONE [facility]IVEN [facility] Prev. PAP: NONE GIVEN [facility] SOURCE: None given [facility] Statement Of Adequacy: SEE COMMENT [facility] Comment: Satisfactory for evaluation. Endocervical/transformation zone component present. Age and/or menstrual status not provided 02/17/2021 11:0 9 AM EDT Natalie Cuenca DO LAB PATHOLOGY ORDERABLES Fin al Result [facility] [address] [place] [address], * HPV mRNA E6/E7 REFLEX TO HPV 16, 18/45 (02/17/2021 11:09 AM EDT) HPV nRNA E6/E7 Not Detected Not Detected [facility] Comment: Methodology: Proofsheet Corrector-Mediated Amplification This assay detects E6/E7 viral messenger RNA (mRNA) from 14 high-risk HPV types (16,18,31,33,35,39,45,51,52,56,58,59,66,68). ? The analytical performance characteristics of this assay have been determined by [employer]. The modifications have not been cleared or approved by the FDA. This assay has been validated pursuant to the CLIA regulations and is used for clinical purposes. ?? For additional information, please refer to http://education.[employer].EXPO/faq/PWO079h8 (This link if provided for information/ educational purposes only.) NO COLLECTION DATE RECEIVED. WE HAVE USED THE DATE THE SPECIMEN WAS RECEIVED BY THIS LABORATORY THE COLLECTION DATE. IF THIS IS INCORRECT, PLEASE CONTACT CLIENT SERVICES. PHONE NUMBER: ?? 02/17/2021 11:0 9 AM EDT Natalie Cuenca DO LAB CYTOLOGY ORDERABLES Heidy l Result [facility] [address] from Last 3 Months or Most Recently Relevant to Health Maintenance Insurance - [employer] Care Teams Eye Clinic Manager Relationship Specialty Start Date End Date Natalie Cuenca DO [address] [place] [phone] PCP - General Family Medicine 05/23/18
--- OUTSIDE RECORDS SUMMARY | 2024-06-26 13:45 | XMS_ITS | Encounter Summary ---
Author Organization [employer] Address [address] [facility] 7t [place] [address] Care Team Providers Care Nurse Obgyn Name Role Phone SamuelNatalie dumont Primary Care Provider Encounter Details Date Type Department Care Team (Latest Contact Info) Description 05/29/2024 Travel Social History Tobacco Use Types Packs/Day [...] 06/26/2024 2:30 PM EST Office Visit [address] [address] Mina Lan MD [address] [place] [address] Arrived 07/24/2024 2:00 PM EST Clinical Support [address] [address] Debbie Vogel RN documented as of this encounter Visit Diagnoses Not on filedocumented in this encounter Additional Health Concerns Assessment Noted Time PHQ-9 Depression Total Score: 10 024 8:39 AM EDT documented as of this encounter Care Teams Nurse Obgyn Relationship Specialty Start Date End Date Natalie Cuenca DO [address] [place] [phone] PCP - General Family Medicine 05/23/18 documented as of this encounter
--- OUTSIDE RECORDS SUMMARY | 2024-06-26 13:45 | XMS_ITS | Encounter Summary ---
Author Organization [employer] Address 75 [facility] 7t [place] [address] Care Team Providers Care Special Delivery Carrier Name Role Phone Natalie Cuenca Primary Care Provider [phone] Reason for Visit * Reason Comments OBAT Encounter Details Date Type Department Care Team (Latest Contact Info) Description 05/29/2024 1:00 PM EST Clinical Support [facility]INE [address] [place] [address] Debbie Vogel RN Opioid type dependence, continuous (CMS/HCC) (Primary Dx) Social History Tobacco Use Types [...] the past 12 months, has t he [employer], gas, oil or water company threatened to [...] as of this encounter Progress Notes * Debbie Vogel RN - 05/29/2024 1:00 PM EST Naz here today for Opioid Dependence RV. Patient on Sublocade, 300 mg, 4 week appointment schedule although sometimes comes more frequently as desired. Patient has been in the program for 3 years. Induction date: 07/25/20. LFTs done 04/2023. Patient actively enrolled in behavioral health services, therapist Suman. kids activities coach, Emeli. MARGA PAT reviewed by provider. Last PCP appt 05/11/23. LAST VISIT 05/01/24 UTOX: +bup Naz presents for OBAT RN IN PERSON VISIT for Opioid Use Disorder. She is alert and oriented. Speech clear, coherent and goal directed. Minimally engaged today. Does not initiate conversation today. Declined offer to speak with therapist or wellness health coach, but agreed to go to the recovery center following this appt. Tram Operator attempted to give her an appt card for her next appt and pt declined, stating I don't need it. Sublocade reviewed. Pt verbalized understanding. Sublocade 300 mg given SQ left upper abdomen. Pt tolerated injection, no adverse reactions noted. Advised pt to call RN withany questions or concerns. Plan: Recovery support, harm reduction (including Narcan), and behavioral health attendance reviewed. Appointment for 4 weeks attempted to be given. Pt declined, stating I don't need it. Patient expressed understanding and agreement with continuing plan of care. TODAY 05/29/24 UTOX: +bup Citlalli presented today for OBAT RN IN PERSON VISIT for Opioid Use Disorder. She is alert and oriented. Speech clear, coherent and goal directed. Easily engaged and initiates some conversation. She had a cast on her right hand due to having broken her thumb while serving food to the homeless. Sublocade reviewed. Pt verbalized understanding. Sublocade 300 mg given SQ LL abdomen. Pt tolerated injection, no adverse reactions noted. Advised pt to call RN with any questions or concerns. She attended the support group in [facility] following her appt. Plan: Recovery support, harm reduction (including Narcan), and behavioral health attendance reviewed. Appointment for 4 weeks attempted to be given. Pt declined, stating I don't need it. Patient expressed understanding and agreement with continuing plan of care. This information has been disclosed to you from records protected by federal confidentiality rules (42 CFR Part 2). The federal rules prohibit you from making any further disclosure of information inthis record that identifies a patient as having or having had a substance use disorder either directly, by reference to publicly available information, or through verification of such identification by another person unless further disclosure is expressly permitted by the written consent of the individual whose information is being disclosed or as otherwise permitted by (see2.3.1). The federal rules restrict any use of the information to investigate or prosecute with regard to a crime any patient with a substance use disorder, except as provided at 2.12??(5) and 2.65. documented in this encounter Plan of Treatment Upcoming Encounters Date Type Department Care Team (Late st Contact Info) Description 06/26/2024 2:30 PM EST Office Visit [facility] [address] [place] [address] Mina Lan MD [address] [place] [address] Arrived 07/24/2024 2:00 PM EST Clinical Support [address] [address] Debbie Vogel RN documented as of this encounter Procedures Procedure Name Priority Date/Time Associated Diagnosis Comments POCT ALYSSA-14 URINE DRUG SCREEN Routine 05/29/2024 2:01 PM EST Opioid type dependence, continuous ([facility]) documented in this encounter Results * POCT ALYSSA-14 Urine Drug Screen (05/29/2024 2:01 PM EST) THC Negative Cocaine Screen, Urine Negative Opiate [...] CARE TEST ENTER/EDIT OR DERABLES Final Result documented in this encounter Visit Diagnoses Diagnosis Opioid type dependence, continuous (CMS/HCC)- Primary Opioid type dependence, continuous documented in this encounter Administered Medications Inactive Administered Medications - up to 3 most recent administrations Medication Order MAR Action Action Date Dose Rate Site buprenorphine ER (Sublocade) 300 mg/1.5mL injection 1 each 1 each, Subcutaneous, Over 1 month, First dose on Tue05/29/24 at 1345, For 1 dose, For abdominal subcutaneous injection only Remove Sublocade from the fridge at least 15 minutes prior to administration. Discard if left at room temperature for longer than 7 days. Do not open the foil pouch until patient arrives. See package insert for specific administration instructions. Do not administer intravenously or intramuscularly.Indication s:Opioid type dependence, continuous (CMS/HCC) Given 05/29/2024 1:45 PM EST 1 each Right Lower Abdomen documented in this encounter Additional Health Concerns Assessment Noted Time PHQ-9 Depression Total Score: 10 02/06/2 024 8:39 AM EDT documented as of this encounter Care Teams Special Delivery Carrier Relationship Specialty Start Date End Date Natalie Cuenca DO [address] [place] [address] PCP - General Family Medicine 05/23/18 documented as of this encounter
--- OUTSIDE RECORDS SUMMARY | 2024-06-26 13:45 | XMS_ITS | Encounter Summary ---
Author Organization [employer] Address 75 [facility] 7t [place] [address] Care Team Providers Care Sculpture Instructor Name Role Phone Natalie Cuenca Primary Care Provider [phone]- [phone] Reason for Visit * Reason Comments RC Recovery Supports Encounter Details Date Type Department Care Team (Late st Contact Info) Description 06/05/2024 Patient Outreach [facility] MEDICINE [address] [place], [place] [phone] Jasvir Justice [address] [place] [address] Recovery Supports Social History Tobacco Use Types [...] as of this encounter Progress Notes * Jasvir Justice - 06/05/2024 4:06 PM EST I met with Citlalli today. Setting: in person at [facility] Recovery Wellness Goals worked on: Physical Health/Mental Health and Social Stability Action taken/next steps: Attended recovery support group Additional comments: Participant attended a group session centered on recovery topics, where members engaged in open discussion and offered mutual support Jasvir Justice documented in this encounter Plan of Treatment Upcoming Encounters Date Type Department Care Team (Late st Contact Info) Description 06/26/2024 2:30 PM EST Office Visit [facility] MEDICINE [address] [place] [address] Mina Lan MD [address] [place] [address] 07/24/2024 2:00 PM EST Clinical Support [facility] MED[facility]INE [address] [place] [address] Debbie Vogel, PARAMJIT documented as of this encounter Visit Diagnoses Not on filedocumented in this encounter Additional Health Concerns Assessment Noted Time PHQ-9 Depression Total Score: 10 024 8:39 AM EDT documented as of this encounter Care Teams Sculpture Instructor Relationship Specialty Start Date End Date Natalie Cuenca DO [address] [place] [address] PCP - General Family Medicine 05/23/18 documented as of this encounter
--- OUTSIDE RECORDS SUMMARY | 2024-06-26 13:45 | XMS_ITS | Encounter Summary ---
Author Organization [employer] Address 75 [facility] 7t [place] [address] Care Team Providers Care Hand Crocheter Name Role Phone SamuelNatalie dumont Primary Care Provider Encounter Details Date Type Department Care Team (Latest Contact Info) Description 06/05/2024 Travel Social History Tobacco Use Types Packs/Day [...] Description 06/26/2024 2:30 PM EST Office Visit [address] [address] Mina Lan MD 230 [place] [address] Arrived 07/24/2024 2:00 PM EST Clinical Support [address] [address] Debbie Vogel RN documented as of this encounter Visit Diagnoses Not on filedocumented in this encounter Additional Health Concerns Assessment Noted Time PHQ-9 Depression Total Score: 10 024 8:39 AM EDT documented as of this encounter Care Teams Hand Crocheter Relationship Specialty Start Date End Date Natalie Cuenca DO [address] [place] [address] PCP - General Family Medicine 05/23/18 documented as of this encounter
--- OUTSIDE RECORDS SUMMARY | 2024-06-26 13:45 | XMS_ITS | Encounter Summary ---
Author Organization [employer] Address 75 [facility] 7t [place] [address] Care Team Providers Care Vending Route Servicer Name Role Phone Natalie Cuenca Primary Care Provider [phone]- [phone] Reason for Visit * Reason Comments Support Groups Encounter Details Date Type Department Care Team (Late st Contact Info) Description 05/29/2024 Patient Outreach [facility] MEDICINE [address] [place] [address] Jim Soria Support Groups Social History Tobacco Use Types Packs/Day Years [...] encounter Progress Notes * Jim Soria - 05/29/2024 3:29 PM EST I met with Citlalli today. Setting: in person at [facility] Recovery Wellness Goals worked on: Social Stability Action taken/next steps: Attended recovery support group Additional comments: Recovery Group. Jim Soria documented in this encounter Plan of Treatment Upcoming Encounters Date Type Department Care Team (Late st Contact Info) Description 06/26/2024 2:30 PM EST Office Visit [facility] [address] [place] [address] Mina Lan MD 230 [place] [address] Arrived 07/24/2024 2:00 PM EST Clinical Support [address] [address] Debbie Vogel RN documented as of this encounter Visit Diagnoses Not on filedocumented in this encounter Additional Health Concerns Assessment Noted Time PHQ-9 Depression Total Score: 10 024 8:39 AM EDT documented as of this encounter Care Teams Vending Route Servicer Relationship Specialty Start Date End Date Natalie Cuenca DO [address] [place] [address] PCP - General Family Medicine 05/23/18 documented as of this encounter
--- OUTSIDE RECORDS SUMMARY | 2024-06-26 13:45 | XMS_ITS | Encounter Summary ---
Author Organization [employer] Address 75 [facility] 7t [place] [address] Care Team Providers Care Jewel Hole Cornerer Name Role Phone Natalie Cuenca DO Primary Care Provider Encounter Details Date Type Department Care Team (Late st Contact Info) Description 06/01/2022 Telephone [facility] MEDICINE 230 [place], [place] [phone] Natalie Cuenca DO 230 [place], [place] [phone] Social History Tobacco Use Types Packs/Day Years Used Date Smoking Tobacco: Never Assessed Depression Answer Date Recorded Patient Health Questionnaire-9 [...] suspected to have Coronavirus/COVID-19? No / Unsure 11/25/2022 1:54 PM EDT documented as of this encounter Miscellaneous Notes * Telephone Encounter - Jovany Laird - 06/01/2022 1:37 PM EST Tc from Madhavi ( [facility] ) requesting a order for a diagnostic mammogram and US, States pt is scheduled for 06/03/22 in the morning. Madhavi gave fax number [phone] Please contact at [phone] documented in this encounter Plan of Treatment Upcoming Encounters Date Type Department Care Team (Late st Contact Info) Description 06/26/2024 2:30 PM EST Office Visit [address] [address] Mina Lan MD [address] [place] [address] 07/24/2024 2:00 PM EST Clinical Support [address] [address] Debbie Vogel, PARAMJIT documented as of this encounter Visit Diagnoses Not on filedocumented in this encounter Care Teams Jewel Hole Cornerer Relationship Specialty Start Date End Date Natalie Cuenca DO [address] [place] [address] PCP - General Family Medicine 05/23/18 documented as of this encounter
--- OUTSIDE RECORDS SUMMARY | 2024-06-26 13:45 | XMS_ITS | Encounter Summary ---
Author Organization [employer] Address 75 [facility] 7t [place] [address] Care Team Providers Care Pump Service Supervisor Name Role Phone MichaelNatalie sarmiento Primary Care Provider Encounter Details Date Type Department Care Team (Late st Contact Info) Description 09/02/2023 Orders Only [facility]INE 230 [place], [place] [phone] Provider, MD Min Social History Tobacco Use Types Packs/Day Years Used Date Smoking Tobacco: Every Day Cigarettes Smokeless Tobacco: Never Alcohol Use Standard Drinks/Week Comments Not Currently 0 (1 standard drink = 0.6 oz pur e alcohol) Depression Answer Date Recorded Patient Health Questionnaire-9 Score 13 08/29/2023 Patient Health Questionnaire-9 Score 13 08/29/2023 Last PHQ-9: Questionnaire Data Not on file 0 08/29/2023 Housing Stability Answer Date Recorded What is [...] Date Recorded Patient Health Questionnaire-2 Score 4 08/29/2023 Comments Unknown Sex and Gender Information Value [...] Description 06/26/2024 2:30 PM EST Office Visit [address] [address] Mina Lan MD 230 [place] [address] Arrived 07/24/2024 2:00 PM EST Clinical Support [address] [address] Debbie Vogel RN documented as of this encounter Procedures Procedure Name Priority Date/Time Associated Diagnosis Comments HM COLONOSCOPY Routine 07/20/2021 10:16 AM EST documented in this encounter Results * Hm Colonoscopy (07/20/2021 10:16 AM EST) us Historical Provider HEALTH MAINTENANCE Final Result documented in this encounter Visit Diagnoses Not on filedocumented in this encounter Additional Health Concerns Assessment Noted Time PHQ-9 Depression Total Score: 13 024 2:06 PM EDT documented as of this encounter Care Teams Pump Service Supervisor Relationship Specialty Start Date End Date Natalie Cuenca DO [address] [place] [address] PCP - General Family Medicine 05/23/18 documented as of this encounter
--- OUTSIDE RECORDS SUMMARY | 2024-06-26 13:46 | XMS_ITS | Encounter Summary ---
Author Organization [employer] Address 75 [facility] 7t [place] [address] Care Team Providers Care Arts And Crafts Teacher Name Role Phone SamuelNatalie dumont Primary Care Provider [phone]- [phone] Reason for Visit * Reason Comments Med Refill Encounter Details Date Type Department Care Team (Late st Contact Info) Description 10/21/2022 Refill [facility] PEDS [address] [place], [place] [phone] Madhavi Hylton MD 230 [place], [place] [phone] Muscle spasm Social History Tobacco Use Types [...] suspected to have Coronavirus/COVID-19? No / Unsure 10/13/2022 9:23 AM EDT documented as of this encounter Plan of Treatment Upcoming Encounters Date Type Department Care Team (Late Contact Info) Description 06/26/2024 2:30 PM EST Office Visit [facility] MEDICINE 230 [place], [place] [phone] Mina Lan MD [address] [place] [address] Arrived 07/24/2024 2:00 PM EST Clinical Support [facility] [place] [address] Debbie Vogel RN documented as of this encounter Visit Diagnoses Diagnosis Muscle spasm Spasm of muscle documented in this encounter Additional Health Concerns Assessment Noted Time PHQ-9 Depression Total Score: 0 06/18/19 23 1:12 PM EST documented as of this encounter Care Teams Arts And Crafts Teacher Relationship Specialty Start Date End Date [place] [address] PCP - General Family Medicine 05/23/18 documented as of this encounter
--- OUTSIDE RECORDS SUMMARY | 2024-06-26 13:46 | XMS_ITS | Encounter Summary ---
Author Organization [employer] Address 75 [facility] 7t [place] [address] Care Team Providers Care Nurseryperson Name Role Phone SamuelNatalie dumont Primary Care Provider +1- [phone] Reason for Visit * Reason Comments Med Refill Encounter Details Date Type Department Care Team (Late st Contact Info) Description 11/03/2022 Refill [facility] MED & PEDS [address] [place], [place] [phone] Madhavi Hylton MD 230 [place], [place] [phone] Muscle spasm Social History Tobacco Use Types [...] suspected to have Coronavirus/COVID-19? No / Unsure 11/05/2022 8:30 AM EDT documented as of this encounter Plan of Treatment Upcoming Encounters Date Type Department Care Team (Late Contact Info) Description 06/26/2024 2:30 PM EST Office Visit [facility] MEDICINE 230 [place], [place] [phone] Mina Lan MD 230 [facility] [place] [address] Arrived 07/24/2024 2:00 PM EST Clinical Support [facility] [place] [address] Debbie Vogel RN documented as of this encounter Visit Diagnoses Diagnosis Muscle spasm Spasm of muscle documented in this encounter Additional Health Concerns Assessment Noted Time PHQ-9 Depression Total Score: 0 06/18/19 23 1:12 PM EST documented as of this encounter Care Teams Nurseryperson Relationship Specialty Start Date End Date [place] [address] PCP - General Family Medicine 05/23/18 documented as of this encounter
--- OUTSIDE RECORDS SUMMARY | 2024-06-26 13:46 | XMS_ITS | Encounter Summary ---
Author Organization [employer] Address 75 [facility] 7t [place] [address] Care Team Providers Care Swift Tender Name Role Phone Natalie Cuenca DO Primary Care Provider [phone]- [phone] Reason for Visit * Reason Comments Med Refill Encounter Details Date Type Department Care Team ([facility] st Contact Info) Description 01/09/2024 Refill [facility] MEDICINE 230 [place], [place] [phone] Natalie Cuenca DO 230 [place], [place] [phone] Muscle spasm Social History Tobacco Use Types Packs/Day Years Used Date Smoking Tobacco: Every Day Cigarettes Passive Smoke Exposure: Never Smokeless Tobacco: Never Alcohol Use Standard Drinks/Week Comments Not Currently 0 (1 standard drink = 0.6 oz pur e alcohol) Depression Answer Date Recorded Patient Health Questionnaire-9 Score 4 12/19/2023 Patient Health Questionnaire-9 Score 4 12/19/2023 Last PHQ-9: Questionnaire Data Not on file 0 12/19/2023 Housing Stability Answer Date Recorded What is [...] Answer Date Recorded Patient Health Questionnaire-2 Score 2 12/19/2023 Comments Unknown Sex and Gender Information Value [...] 06/26/2024 2:30 PM EST Office Visit [address] [address] Mina Lan MD [address] [place] [address] Arrived 07/24/2024 2:00 PM EST Clinical Support [address] [address] Debbie Vogel, PARAMJIT documented as of this encounter Visit Diagnoses Diagnosis Muscle spasm Spasm of muscle documented in this encounter Additional Health Concerns Assessment Noted Time PHQ-9 Depression Total Score: 4 12/19/19 24 3:16 PM EDT documented as of this encounter Care Teams Swift Tender Relationship Specialty Start Date End Date Natalie Cuenca DO [address] [place] [address] PCP - General Family Medicine 05/23/18 documented as of this encounter
[2024-06-27 08:24] LABS: HIV AB/AG Nonreactive (Nonreactive); HIV Num 1 0.05 S/CO (0.00-0.99); ~HepC Num1 0.17 S/CO (0.00-0.79); ~Hepatitis C Antibody Nonreactive (Nonreactive)
[2024-06-27 08:36] LABS: Syphilis Screen Nonreactive (Nonreactive)
[2024-07-01 20:03] LABS: C. trachomatis RNA TMA Not Detected (Not Detected); N. gonorrhoeae RNA TMA Not Detected (Not Detected); Trichomonas (NAAT) Not Detected (Not Detected)
== END 2024-06-26 13:32 | disposition home or self-care (01) ==
LOC: HO.HHCL 13:31
PROVIDERS: Emergency Medicine; Visit Provider Advanced Practice Midwife
DX: F11.20 Opioid dependence, uncomplicated (principal); Z20.2 Contact with and (suspected) exposure to infections with a predominantly sexual mode of transmission
CPT/HCPCS: 36415; 86780; 86803; 87389; 87491; 87591; 87626; 87661; 88175

== ENCOUNTER 2025-01-14 12:30 | Outpatient (REF) | payer OTHER, SELFPAY ==
--- NOTE | ~2025-01-14 | XR_ITS ---
EXAMINATION: XR HIP, RIGHT CLINICAL INFORMATION: worsening hip pain/giving out COMPARISON: None available. TECHNIQUE: Two views of the right hip. FINDINGS: There is a subtle uniform joint space narrowing. No other abnormalities are seen. No fracture is evident. There is sclerosis of the pubic symphysis joint. XR/XR hip RT min 2V IMPRESSION: Subtle right hip joint space narrowing. 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
--- NOTE | ~2025-01-14 | XR_ITS ---
EXAMINATION: XR FOOT, RIGHT CLINICAL INFORMATION: foot pain with walking COMPARISON: None available. TECHNIQUE: AP, lateral, and oblique views of the right foot. FINDINGS: Mild hallux valgus deformity is present. Joint spaces are maintained. There are no osteophytes. No erosions are identified. XR/XR foot RT min 3V IMPRESSION: Mild hallux valgus deformity. Electronically signed by: Grey White MD 01/14/2025 01:53 PM EDT
--- OUTSIDE RECORDS SUMMARY | 2025-01-14 13:40 | XMS_ITS | Encounter Summary ---
Author Organization [employer] Address 75 [facility] 7t [place] [address] Care Team Providers Care Audio Tape Librarian Name Role Phone Natalie Cuenca DO Primary Care Provider +1- [phone] Reason for Visit * Reason Onset Date Comments Referral 02/23/2024 Encounter Details Date Type Department Care Team (Late st Contact Info) Description 02/23/2024 Telephone [facility] MEDICINE 230 [place], [place] [phone] Natalie Cuenca DO 230 [place], [place] [phone] Referral Social History Tobacco Use Types Packs/Day [...] Notes * Telephone Encounter - Dexter Nascimento Dewey - 02/23/2024 3:56 PM EDT Tc from pt requesting if pcp could refer her over somewhere in [place] due to location, Referral for BI Mammogram documented in this encounter Plan of Treatment Upcoming Encounters Date Type Department Care Team (Late st Contact Info) Description 03/01/2025 3:45 PM EDT Office Visit [facility] MEDICINE [address] [place] [address] Ilda Pablo MD 230 [place] [address] documented as of this encounter Visit Diagnoses Not on filedocumented in this encounter Additional Health Concerns Assessment Noted Time PHQ-9 Depression Total Score: 10 024 8:39 AM EDT documented as of this encounter Care Teams Audio Tape Librarian Relationship Specialty Start Date End Date Natalie Cuenca DO 230 [place] [address] PCP - General Family Medicine 05/23/18 documented as of this encounter
== END 2025-01-14 12:31 | disposition home or self-care (01) ==
LOC: HO.HHCL 12:30
PROVIDERS: PCP Family Medicine; Visit Provider Family Medicine
DX: M25.551 Pain in right hip (principal); M79.671 Pain in right foot
CPT/HCPCS: 73502; 73630

== ENCOUNTER → 2025-01-14 12:37 | Outpatient (BNV) | payer OTHER, SELFPAY | PROVIDERS: PCP Family Medicine; Visit Provider Radiology Diagnostic Radiology | DX: M79.671 Pain in right foot (principal); M25.551 Pain in right hip | CPT/HCPCS: 73502; 73630 ==

== ENCOUNTER 2025-02-22 11:42 | Outpatient (REF) | payer OTHER, SELFPAY ==
--- OUTSIDE RECORDS SUMMARY | 2025-02-22 11:30 | XMS_ITS | Encounter Summary ---
Author Organization [employer] Address [address] [facility] [address] [place] [address] Care Team Providers Care Supervisor Yard Name Role Phone Natalie Cuenca DO Primary Care Provider [phone] Encounter Details Date Type Department Care Team (Late st Contact Info) Description 02/22/2025 11:30 AM EDT Office Visit [facility] [address], [place] [phone] Natalie Cuenca DO [address] [place], [place] [phone] Major depression, recurrent, chronic (CMS/HCC) (Primary Dx); Post traumatic stress disorder; Forgetfulness Social History Tobacco Use Types Packs/Day Years Used Date Smoking Tobacco: Every Day Cigarettes Passive Smoke Exposure: Never Smokeless Tobacco: Never Alcohol Use Standard Drinks/Week Comments Not Currently 0 (1 standard drink = 0.6 oz pur e alcohol) Depression Answer Date Recorded Patient Health Questionnaire-9 Score 8 01/14/2025 Patient Health Questionnaire-9 Score 8 01/14/2025 Last PHQ-9: Questionnaire Data Not on file 0 01/14/2025 Housing Stability Answer Date Recorded What is your housing situation today? I do not have housing (Staying with others, in a hotel, in a detention, living outside on the street, on a beach, in a car, or in a park 01/14/[address] you li ve. Do you have problems with any of the following? None of the above 01/14/2025 Food Insecurity Answer Date Recorded Within the past 12 months, y ou worried that your food would run out before you got money to buy more: Sometimes True 2024 Within the past 12 months,th e food you bought just didn't last and you didn't have enough money to get more: Sometimes True 01/14/2025 Transportation Answer Date Recorded In the past 12 months, has l ack of transportation kept you from medical appts, meetings, work or from getting things needed for daily living? No 01/14/2025 Utilities Answer Date Recorded In the past 12 months, has t he electric, gas, oil or water company threatened to shut off services in your home? No 01/14/2025 Depression Answer Date Recorded Patient Health Questionnaire-2 Score 1 01/14/2025 Internet Access Answer Date Recorded Internet Access Q1 Yes 01/14/2025 Internet Access Q2 Not on file 01/14/2025 Comments No Sex and Gender Information Value Date Recorded Sex Assigned at Female 03/22/2022 10:14 AM EDT Legal Sex Female 10:14 AM EDT Gender Identity Female 03/22/2022 10:14 AM EDT Sexual Orientation Lesbian or Koenig 03/22/2022 10 :14 AM EDT documented as of this encounter Last Filed Vital Signs Vital Sign Reading Time Taken Comments Blood Pressure 128/70 02/22/2025 11:07 AM EDT Pulse 70 02/22/2025 11:07 AM EDT Temperature 36.6 C (97.9 F) 02/22/2025 11:07 AM EDT Respiratory Rate 20 02/22/2025 11:07 AM EDT Oxygen Saturation 98% 02/22/2025 11:07 AM EDT Inhaled Oxygen Concentration - - Weight 82.2 kg (181 lb 2 oz) 02/22/2025 11:07 AM EDT Height 149.9 cm (4' 11 ) 02/22/2025 11:07 AM EDT Body Mass Index 36.58 02/22/2025 11:07 AM EDT documented in this encounter Plan of Treatment Upcoming Encounters Date Type Department Care Team (Late st Contact Info) Description 03/01/2025 3:45 PM EDT Office Visit [facility] [address] [place] [address] Ilda Pablo MD [address] [place] [address] Scheduled Orders Name Type Priority Associated Diagnoses Orde r Schedule Vitamin B12 (Cobalamin) and Folate Panel, Serum Lab Routine Forgetfulness Expected: 02/22/2025 (Approximate), Expires: 02/22/2026 documented as of this encounter Visit Diagnoses Diagnosis Major depression, recurrent, chronic (CMS/HCC)- Primary Post traumatic stress disorder Posttraumatic stress disorder Forgetfulness Other general symptoms documented in this encounter Additional Health Concerns Assessment Noted Time PHQ-9 Depression Total Score: 8 01/15/20 25 1:35 PM EDT documented as of this encounter Care Teams Supervisor Yard Relationship Specialty Start Date End Date Natalie Cuenca DO [address] [place] [phone] PCP - General Family Medicine 05/23/18 documented as of this encounter
--- OUTSIDE RECORDS SUMMARY | 2025-02-22 12:49 | XMS_ITS | Clinical Summary ---
Author Organization [employer] Address [address] [facility] 7[address] [place] [address] Care Team Providers Care Visitor Services Coordinator Name Role Phone BangNatalie Primary Care Provider [phone] Allergies No known active allergies Medications * This document contains information received from the source organization and may not represent a complete record from that organization. naloxone (Narcan) 4 mg/0.1 mL nasal spray Administer 0.1 mL into affected nostril(s) if needed. [place] in 1 nostril may repeat dose every 2-3 minutes as needed alternating nostrils with each dose Active traZODone (Desyrel) 50 MG tablet Take 1-2 tablets by mouth if needed at bedtime. Active Respiratory Therapy Supplies (Nebulizer/Tubi ng/Mouthpiece) kit 1 kit. Apply to inhalation route as directed Active Nebulizers (AeroEclipse II Nebulizer) misc Use with albuterol as directed Active nicotine polacrilex (Nicorelief) 2 MG gum Chew 1 piece of gum every 4 hours instead of a cigarette. 30 each 023 Active betamethasone valerate (Valisone) 0.1 % cream APPLY TO AFFECTED AREA TWICE A DAY 30 g 024 Active albuterol 108 (90 Base) MCG/ACT inhaler Inhale 2 puffs every 4 (four) hours if needed for wheezing or shortness of breath. 18 g 1 024 Active buPROPion XL (Wellbutrin XL) 300 MG 24 hr tablet 024 Active ARIPiprazole (Abilify) 5 MG tablet Take 2 tablets (10 mg) by mouth at bedtime. 60 tablet 3 024 Active docusate sodium (Colace) 100 MG capsule Take 1 capsule (100 mg) by mouth if needed in the morning and at bedtime for constipation. 60 capsule 3 Active Multiple Vitamin (Daily-Rogers Multivitamin) tablet TAKE 1 TABLET BY MOUTH EVERY DAY 90 tablet 1 Active ARIPiprazole (Abilify) 2 MG tablet TAKE 1 TABLET BY MOUTH EVERY MORNING TAKE IN THE AM IN ADDITION TO 5 MG = 7 MG TOTAL DAILY DOSE Active buPROPion XL (Wellbutrin XL) 150 MG 24 hr tablet TAKE 1 TABLET BY MOUTH EVERY MORNING IN ADDITION TO 300 MG DAILY = 450 MG DAILY Active prazosin (Minipress) 5 MG capsule Take 5 mg by mouth at bedtime. Active gabapentin (Neurontin) 400 MG capsule Take 1 capsule (400 mg) by mouth 3 times daily. 90 capsule 3 2025 Active lidocaine (Lidoderm) 5 % patchIndication s:Meralgia paresthetica of right side Apply 1 patch topically Once per day. Remove & discard patch within 12 hours or as directed by MD. 30 patch 3 Active naproxen (Naprosyn) 500 MG tablet Take 1 tablet (500 mg) by mouth if needed in the morning and at bedtime for mild pain. 40 tablet 1 2025 Active Diclofenac Sodium 1 % gel Apply 2 g topically if needed in the morning, at noon, in the evening, and at bedtime (pain). 150 g 3 Active fluticasone furoate (Arnuity Ellipta) 100 MCG/ACT inhaler Inhale 1 puff Once per day. Rinse mouth with water after use to reduce aftertaste and incidence of candidiasis. Do not swallow. 1 each 2025 Active albuterol (2.5 MG/3ML) 0.083% nebulizer solutionIndicat ions:Mild persistent asthma without complication Take 3 mL by nebulization every 4 (four) hours if needed for wheezing or shortness of breath. For cough, wheeze or SOB 75 mL 1 Active atorvastatin (Lipitor) 20 MG tablet TAKE 1 TABLET BY MOUTH EVERYDAY AT BEDTIME 90 tablet 1 Active clindamycin (Cleocin T) 1 % lotion Apply topically 2 times daily. 60 mL 3 025 2025 Active baclofen (Lioresal) 10 MG tabletIndicatio ns:Muscle spasm TAKE 1 TABLET BY MOUTH IF NEEDED IN THE MORNING AND 1 TABLET AT BEDTIME FOR MUSCLE SPASMS. 180 tablet Active sennosides (Senokot) 8.6 MG tablet Take 2 tablets by mouth if needed each day. At bedtime as needed for constipation 022 2024 Discontinued(M ed list cleanup (will not trigger notification to Pharmacy)) acamprosate (Campral) 333 MG EC tablet Take 666 mg by mouth in the morning, at noon, and at bedtime. 2 tablets PO TID. May take with food. 2024 Discontinued(M ed list cleanup (will not trigger notification to Pharmacy)) atorvastatin (Lipitor) 20 MG tablet TAKE 1 TABLET BY MOUTH EVERYDAY AT BEDTIME 90 tablet 1 025 2024 Discontinued baclofen (Lioresal) 10 MG tabletIndicatio ns:Muscle spasm TAKE 1 TABLET BY MOUTH IF NEEDED IN THE MORNING AND 1 TABLET AT BEDTIME FOR MUSCLE SPASMS. 180 tablet 025 2024 Discontinued acetaminophen (Tylenol 8 Hour) 650 MG ER tablet Take 1 tablet (650 mg) by mouth every 8 (eight) hours if needed for mild pain. Do not crush, chew, or split. 40 tablet 1 025 2024 doxycycline (Vibra-Tabs) 100 MG tablet Take 1 tablet (100 mg) by mouth 2 times daily for 14 days. Take with a full glass of water and do not lie down for at least 30 minutes after. 28 tablet 025 2024 Discontinued(T herapy completed) Active Problems Problem Noted Date Diagnosed Date Chronic bilateral low back pain without sciatica 06/06/2024 Assessment & Plan (06/06/2024 3:54 PM EST): No red flags, no saddle anesthesia, weakness, numbness, tingling in lower extremities, denies changes in urination or bowel movements. Advised pt to use hot/cold therapy, tylenol and ibuprofen for pain control. Patient may RTC if symptoms worsen or do not improve. Hot flashes 10/10/2023 STIVEN (generalized anxiety disorder) [...] Items Addressed This Visit Other Opioid dependence ([facility]) STIVEN (generalized anxiety disorder) Major depression, recurrent, chronic (CMS/HCC) Patient ready to address current needs Yes Strengths include: Reaches out for support, willingness to engage, follows recommendations. PLAN: 1. Follow up with [facility]: Not recommended for follow-up 2. Patient goal is to maintain recovery, and improve MH 3. Behavioral Recommendations a. Follow up with current therapist b. Restart psychiatric medication c. Reach out as needed for support Polysubstance abuse 10/26/2022 Mild persistent asthma 04/19/2022 BMI 36.0-36.9,adult 04/19/2022 Post traumatic stress disorder 01/28/2017 Alcohol dependence in remission ([facility]/HCC) 2014 Cocaine dependence in remission ([facility]) 2014 Hyperlipidemia 03/18/2015 Opioid dependence in remission ([facility]) 015 Tobacco dependence 03/18/2015 Vitamin D deficiency 03/18/2015 Resolved Problems Problem Noted Date Diagnosed Date Resolved Date Encounter for adult wellness visit 06/06/2024 02/22/2025 Assessment & Plan (06/06/2024 4:07 PM EST): Physical exam wnl today Mammo due, new orders placed today Pt will benefit from memory screening as well as ADLs and IADLs assessed. Recommended f/u for pelvic exam, pap alone due, pap/HPV cotesting due 01/2026. Advised pt to stop smoking, she is motivated, declines pharmacological support at this time Asthma 10/26/2022 10/26/2022 Major depression 09/10/2022 10/26/2022 Recurrent major depression 01/28/2017 0 10/26/2022 Encounters Date Type Department Care Team Description 02/22/2025 11:30 AM EDT Office Visit [facility] [address] [place] [phone] Natalie Cuenca DO Major depression, recurrent, chronic (CMS/HCC) (Primary Dx); Post traumatic stress disorder; Forgetfulness 02/22/2025 Travel 02/21/2025 Telephone [facility] [address] [place] [phone] Natalie Cuenca DO Chart Prep 02/15/2025 Travel 02/15/2025 Telephone [facility] [address] [place] [phone] Natalie Cuenca DO Durable Medical Equipment 02/15/2025 Refill [facility] [address] [place] [address] Madhavi Hylton MD Muscle spasm 02/01/2025 3:40 PM EDT Office Visit [facility] [address] [place] [phone] Rachid Cuevas MD Hidradenitis axillaris (Primary Dx) 02/01/2025 Travel 01/24/2025 Refill [facility] [address] [place] [phone] Natalie Cuenca DO 01/14/2025 11:30 AM EDT Office Visit [facility] [address] [place] [phone] Natalie Cuenca DO Other hyperlipidemia (Primary Dx); Major depression, recurrent, chronic (CMS/HCC); Polysubstance abuse (CMS/HCC); Mild persistent asthma without complication; Tobacco dependence; Hot flashes; Thumb pain, right; Tremor; Meralgia paresthetica of right side; Pain of right hip; Right foot pain; Healthcare maintenance 01/14/2025 Travel 01/11/2025 Telephone [facility] [address] [place] [address] Natalie Cuenca DO Chart Prep 01/10/2025 Refill [facility] [address] [place] [address] Natalie Cuenca DO from Last 3 Months Immunizations Immunization Administration Dates Next Due Hep A, Adult 07/08/2023,01/05/2013 Hep B, adult 07/08/2023,04/07/2007,03/01/2007 Influenza injectable quadriv alent IIV4 with preservative 04/11/2018,03/18/2015 Influenza injectable quadriv alent preservative free 05/03/2023,02/20/2022,02/13/2021,04/23,02/17/2017 Influenza, IIV3, injectable 03/15/2019, 7 Influenza, Recombinant, inje ctable, preservative free 01/31/2025 Influenza, seasonal, injecta ble, preservative free 02/10/2024 [...] with others, in a hotel, in a residential, living outside on the street, on a [...] Mass Index 36.58 02/22/2025 11:07 AM EDT Plan of Treatment Upcoming Encounters Date Type Department Care Team (Late st Contact Info) Description 03/01/2025 3:45 PM EDT Office Visit [facility] [address] [place] [address] Ilda Pablo MD [address] [place] [address] Health Maintenance Due Date Last Done Comments CT Colonography 1967 FIT DNA/Cologuard 1967 FIT 1967 FOBT 1965 Sigmoidoscopy 1967 Alcohol/Substance Use Screening 06/06/2025 06/06/2024 Mammogram 08/16/2025 08/16/2024, 03/0 10/2022, 04/01/2022, Additional history exists Depression Screening 01/14/2026 01/14/2025, 01/15/20 Disability Screening 01/14/2026 01/14/2025 SDOH Screening 01/14/2026 01/14/2025 Tobacco Screening 02/22/2026 02/22/2025 Colonoscopy 07/20/2026 07/20/2021 Colorectal Cancer Screening 07/20/2026 Lipid Panel 10/10/2028 2023, 04/22, 04/05/2022, Additional history exists Cervical Cancer Screening 06/26/2029 HPV/Cotest 06/26/2029 06/26/2024, 01/22, 03/18/2017 Pap Smear 06/26/2029 06/26/2024, 02/17/2021 DTaP/Tdap/Td Vaccines (4 - Td or Tdap) 02/13/2031 02/13/2021, 08/18/2014, 08/07/2009 RSV Patients and Patients Aged 60 years or older (1 - 1-dose 75+ series) 10/10/2042 Pneumococcal Vaccine: 50+ Years Completed 03/17/2022, 03/16/2019 Zoster Vaccines Completed 10/26/2022, 12/09/2021 Hepatitis A Vaccines Aged Out 07/08/2023, 01/06/20 13 No longer eligible based on patient's age to complete this topic Hepatitis B Vaccines Completed 07/08/2023, 04/07/2007, 03/01/2007 HIV Screening Completed 06/26/2024, 09/21, 04/05/2022, Additional history exists Hepatitis C Screening Completed 06/26/2024 , 2023, 04/05/2022, Additional history exists COVID-19 Vaccine Completed 01/31/2025, , 05/03/2023, Additional history exists Influenza Vaccine Completed 01/31/2025, , 05/03/2023, Additional history exists HIB Vaccines Aged Out No longer eligi ble based on patient's age to complete this topic HPV Vaccines Aged Out No longer eligi ble based on patient's age to complete this topic IPV Vaccines Aged Out No longer eligi ble based on patient's age to complete this topic Meningococcal B Vaccine Aged Out No l onger eligible based on patient's age to complete [...] Procedure Name Priority Date/Time Associated Diagnosis Comments XR FOOT 3+ VIEWS RIGHT Routine 5 1:47 PM EDT Right foot pain XR HIP 2 OR 3 VIEWS RIGHT Routine 01/14/2025 11:58 AM EDT Pain of right hip BI MAMMOGRAM DIAGNOSTIC TOMOSYNTHESIS BILATERAL Routine 08/16/2024 Encounter for adult wellness visit HEPATITIS C AB W/REFL TO HCV RNA, QN, PCR Routine 06/26/2024 1:34 PM EST Uncomplicated opioid dependence (CMS/HCC) HIV 1/2 ANTIGEN/ANTIBODY, FOURTH GENERATION W/RFL Routine 06/26/2024 1:34 PM EST Uncomplicated opioid dependence (CMS/HCC) HPV DNA, LOW/HIGH RISK Routine 1:10 PM EST PAP SMEAR Routine 06/26/2024 1:10 PM EST Cervical cancer screening LIPID PANEL, STANDARD Routine 2023 3:08 PM EDT Tremor HM COLONOSCOPY Routine 07/20/2021 10:16 AM EST from Last 3 Months or Most Recently Relevant to Health Maintenance Results * XR Foot 3+ Views Right (01/14/2025 1:47 PM EDT) Anatomical Region Laterality Modality Lower Extremities, Foot Right Radiogra phic Imaging 01/14/2025 1:47 PM EDT Narrative 01/14/2025 1:56 PM EDT [address] [address] XRay Report Signed Patient: Naz Julien MR#: [id number] : 1965 Acct:[id number] Age/Sex: 59 / F ADM Date: 01/14/25 Loc: .[facility] Attending Dr: Natalie Cuenca DO Ordering Physician: Natalie Cuenca DO Date of Service: 01/14/25 Procedure(s): XR foot RT min 3V Accession Number(s): [id number] cc: Natalie Cuenca DO EXAMINATION: XR FOOT, RIGHT CLINICAL INFORMATION: foot pain with walking COMPARISON: None available. TECHNIQUE: AP, lateral, and oblique views of the right foot. FINDINGS: Mild hallux valgus deformity is present. Joint spaces are maintained. There are no osteophytes. No erosions are identified. XR/XR foot RT min 3V IMPRESSION: Mild hallux valgus deformity. Electronically signed by: Grey White MD 01/14/2025 01:53 PM EDT Dictated By: Grey White MD Signed By: <Electronically signed by Grey White MD in OV> 01/14/25 1353 DD/ 1347 TD/TT: 01/14/25 1347 Elephant Tamer: Procedure Note Tonyater, Image - 01/14/[address] [address] XRay Report Signed Patient: Naz JulienMR#: [id number] : 1965Acct:[id number] Age/Sex: 59 / FADM Date: 01/14/25 [facility] Dr: Natalie Cuenca DO Ordering Physician: Natalie Cuenca DO Date of Service: 01/14/25 Procedure(s): XR foot RT min 3V Accession Number(s): [id number] cc: Natalie Cuenca DO EXAMINATION: XR FOOT, RIGHT CLINICAL INFORMATION: foot pain with walking COMPARISON: None available. TECHNIQUE: AP, lateral, and oblique views of the right foot. FINDINGS: Mild hallux valgus deformity is present. Joint spaces are maintained. There are no osteophytes. No erosions are identified. XR/XR foot RT min 3V IMPRESSION: Mild hallux valgus deformity. Electronically signed by: Grey White MD 01/14/2025 01:53 PM EDT Dictated By: Grey White MD Signed By: <Electronically signed by Grey White MD in OV> 01/14/25 1353 DD/ 1347 TD/TT: 01/14/25 1347 Elephant Tamer: Natalie uCenca DO IMG XR PROCEDURES Final Resu lt * XR Hip 2 or 3 Views Right (01/14/2025 11:58 AM EDT) Anatomical Region Laterality Modality Lower Extremities, Hip Right Radiograp hic Imaging 01/14/2025 11:5 8 AM EDT Narrative 01/14/2025 1:55 PM EDT [address] [address] XRay Report Signed Patient: Naz Julien MR#: [id number] : 1965 Acct:[id number] Age/Sex: 59 / F ADM Date: 01/14/25 Loc: [facility].CL Attending Dr: Natalie Cuenca DO Ordering Physician: Natalie Cuenca DO Date of Service: 01/14/25 Procedure(s): XR hip RT min 2V Accession Number(s): [id number] cc: Natalie Cuenca DO EXAMINATION: XR HIP, RIGHT CLINICAL INFORMATION: worsening hip pain/giving out COMPARISON: None available. TECHNIQUE: Two views of the right hip. FINDINGS: There is a subtle uniform joint space narrowing. No other abnormalities are seen. No fracture is evident. There is sclerosis of the pubic symphysis joint. XR/XR hip RT min 2V IMPRESSION: Subtle right hip joint space narrowing. 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 Dictated By: Grey White MD Signed By: <Electronically signed by Grey White MD in OV> 01/14/25 1352 DD/ 1158 TD/TT: 01/14/25 1200 Elephant Tamer: Procedure Note Donotuseinterpreter, Image - 01/14/2025 [place] [address] XRay Report Signed Patient: Naz JulienMR#: [id number] : 1965Acct:[id number] Age/Sex: 59 / FADM Date: 01/14/25 [facility] Attending Dr: Natalie Cuenca DO Ordering Physician: Natalie Cuenca DO Date of Service: 01/14/25 Procedure(s): XR hip RT min 2V Accession Number(s): [id number] cc: Natalie Cuenca DO EXAMINATION: XR HIP, RIGHT CLINICAL INFORMATION: worsening hip pain/giving out COMPARISON: None available. TECHNIQUE: Two views of the right hip. FINDINGS: There is a subtle uniform joint space narrowing. No other abnormalities are seen. No fracture is evident. There is sclerosis of the pubic symphysis joint. XR/XR hip RT min 2V IMPRESSION: Subtle right hip joint space narrowing. 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 Dictated By: Grey White MD Signed By: <Electronically signed by Grey White MD in OV> 01/14/25 1352 DD/ 1158 TD/TT: 01/14/25 1200 Elephant Tamer: us Natalie Cuenca DO IMG XR PROCEDURES Final Resu lt * BI Mammogram Diagnostic Tomosynthesis Bilateral (08/16/2024) Anatomical Region Laterality Modality Breast Bilateral Mammography Ayse Gutiérrez MD IMG BI PROCEDURES Final Resul t * Hepatitis C Antibody with Reflex to HCV, RNA, Quantitative, Real-Time PCR (06/26/2024 1:34 PM EST) Hepatitis C Antibody Nonreactive Nonreactive [facility] Comment:Antibodies to HCV no t detected; does not exclude early acuteHCV infection. Blood Venous blood specimen / Unknown 06/26/2024 1:34 PM EST 06/26/2024 4:21 PM EST Abel Jones MD LAB BLOOD ORDERABLES Final Res ult [facility] [address] [place] [phone] [phone] * HIV-1/2 Antigen and Antibodies, Fourth Generation, with Reflexes (06/26/2024 1:34 PM EST) HIV AB/AG Nonreactive Nonreactive [facility] Comment:HIV-1 p24 Ag and/or HIV-1/HIV-2 Ab not detected.A test result that is nonreactive does not exclude thepossibility of exposure to or infection with HIV-1 and/orHIV-2. Nonreactive results in this assay for individualswith prior exposure to HIV-1 and/or HIV-2 may be due toantigen and antibody levels that are below the limit ofdetection of this assay.The [employer] HIV Ag/Ab Combo assay result andsupplemental assay results should be interpreted inconjunction with the patient's clinical presentation,history and other laboratory results. If the results areinconsistent with clinical evidence, additional testing issuggested to confirm the result. Blood Venous blood specimen / Unknown 06/26/2024 1:34 PM EST 06/26/2024 4:21 PM EST us bAel Jones MD LAB BLOOD ORDERABLES Final Res ult [facility] [address] [place] [phone] * HPV DNA, Low/High Risk (06/26/2024 1:10 PM EST) Pathologist [facility] HPV High Risk Negative Negative [facility] HPV Genotype 16 Negative Negative [facility] HPV Genotype 18 Negative Negative [facility] Comment:HPV testing performe d at [facility] (CLIA#[id number]), [address] [place] [address].Testing for HPV was performed using the [employer] 6800system. The presence of HPV in the female genital tract isassociated with a number of diseases, including cervicalcarcinoma. The HPV DNA high risk pool tests for HPV 31, 33,35, 39, 45, 51, 52, 56, 58, 59, 66 and 68. The testing forHPV 16 and 18 genotypes has also been performed. A positiveresult indicates detection of nucleic acid sequences fromone or more subtypes, whereas a negative result indicatessuch sequences were not detected. 06/26/2024 1:10 PM EST 06/27/2024 9:15 AM EST us Jaqui Sauceda CNM LAB BLOOD ORDERABLES Heidy olivia Result [facility] [address] [place] [phone] * Pap Smear (06/26/2024 1:10 PM EST) Swab 06/26/2024 1:10 PM EST 06/27/2024 9:15 AM EST Narrative [facility] - 07/05/2024 1:11 PM EST ----- ------- Name: Naz Julien Age/Sex: 58/F : 1965 Unit#: [id number] Attend Dr: JAQUI SAUCEDA CNM Re06/26/24 Status: [facility]LY [facility] Location: [facility] Disch: ----- ------- SPEC : [id number] RECD: 06/27/24 STATUS: BASIL MENDOZA NUM: [id number] YUAN: 06/26/24-1309 [facility] DR: JAQUI SAUCEDA CNM ENTERED: 06/27/24 SP TYPE: Pap Smr OTHR DR: ORDERED: Pap Smear Interpretation Satisfactory for evaluation. Negative for intraepithelial lesion or malignancy. No endocervical cells seen. Coccobacilli consistent with shift in vaginal dell. HPV High Risk: Negative HPV Genotyping 16: Negative HPV Genotyping 18: Negative Clinical Information LMP: Postmenopausal Previous PAP test: 2020, WNL Material Received ThinPrep-Cervical ----- ------- Signed (signature on file) SP Saunders (ASCP) 07/05/24 1311 ----- ------- END OF REPORT us Jaqui Sauceda [facility] CYTOLOGY ORDERABLES F inal Result [facility] [address] [place] [phone] * Lipid Panel, Standard (2023 3:08 PM EDT) Triglycerides 100 <150 mg/dL [facility] Comment:Desirable Triglyceri de: less than 150 mg/dLBorderline High Triglyceride 150-199 mg/dLHigh Triglyceride: 200-499 mg/dLVery High Triglyceride: greater than or equal to 5OO mg/dL Cholesterol 157 <200 mg/dL [facility] Comment:Desirable Cholestero l: less than 200 mg/dLBorderline High Cholesterol: 200-239 mg/dLHigh Cholesterol: greater than 239 mg/dL LDL Cholesterol Calculated 82 <100 mg/dL [facility] Comment:Desirable LDL: less than 100 mg/dLNear Optimal/Above Optimal LDL: 110- 129 mg/dLBorderline High LDL: 130-159 mg/dLHigh LDL: 160-189 mg/dLVery High LDL: greater than or equal to 190 mg/dL HDL Cholesterol 55 >40 mg/dL [facility] Comment:Desirable HDL: great er than 40 mg/dL Note: This HDL assay may give artificially low results in patients with liver disease. Blood Venous blood specimen / Unknown 2023 3:08 PM EDT 2023 4:11 PM EDT us Natalie Cuenca DO LAB BLOOD ORDERABLES Final R esult [facility] [address] [place] [phone] * Hm Colonoscopy (07/20/2021 10:16 AM EST) Historical Provider HEALTH MAINTENANCE Final Result from Last 3 Months or Most Recently Relevant to Health Maintenance Insurance [facility] STANDARD [facility] ONE CARE < 65 Care Teams Visitor Services Coordinator Relationship Specialty Start Date End Date Natalie Cuenca DO [address] [place] [phone] PCP - General Family Medicine 05/23/18
--- OUTSIDE RECORDS SUMMARY | 2025-02-22 12:49 | XMS_ITS | Encounter Summary ---
Author Organization [employer] Address [address] [facility] 7[address] [place] [address] Care Team Providers Care Student Services Advisor Name Role Phone Natalie Cuenca DO Primary Care Provider [phone] Reason for Visit * Reason Onset Date Comments Referral 02/23/2024 Encounter Details Date Type Department Care Team (Late st Contact Info) Description 02/23/2024 Telephone [facility] [address] [place], [place] [phone] Natalie Cuenca DO [address] [place], [place] [phone] Referral Social History Tobacco Use Types Packs/Day [...] pcp could refer her over somewhere in [place] due to location, Referral for BI Mammogram documented in this encounter Plan of Treatment Upcoming Encounters Date Type Department Care Team (Late st Contact Info) Description 03/01/2025 3:45 PM EDT Office Visit [facility] [address] [place] [address] Ilda Pablo MD [address] [place] [address] documented as of this encounter Visit Diagnoses Not on filedocumented in this encounter Additional Health Concerns Assessment Noted Time PHQ-9 Depression Total Score: 10 024 8:39 AM EDT documented as of this encounter Care Teams Student Services Advisor Relationship Specialty Start Date End Date Natalie Cuenca DO [address] [place] [address] PCP - General Family Medicine 05/23/18 documented as of this encounter
--- OUTSIDE RECORDS SUMMARY | 2025-02-22 12:49 | XMS_ITS | Encounter Summary ---
Author Organization [employer] Address [address] [facility] 7t [place] [address] Care Team Providers Care Doughnut Icer Machine Name Role Phone Natalie Cuenca DO Primary Care Provider + [phone] Reason for Visit * Reason Comments Med Change Request Encounter Details Date Type Department Care Team (Late st Contact Info) Description 02/26/2024 Refill [facility] [address] [place], [place] [phone] Natalie Cuenca DO [address] [place], [place] [phone] Tobacco use disorder Social History Tobacco Use [...] Description 03/01/2025 3:45 PM EDT Office Visit [facility] [address] [place] [address] Ilda Pablo MD [address] [place] [address] documented as of this encounter Visit Diagnoses Diagnosis Tobacco use disorder documented in this encounter Additional Health Concerns Assessment Noted Time PHQ-9 Depression Total Score: 10 024 8:39 AM EDT documented as of this encounter Care Teams Doughnut Icer Machine Relationship Specialty Start Date End Date Natalie Cuenca DO [address] [place] [address] PCP - General Family Medicine 05/23/18 documented as of this encounter
--- OUTSIDE RECORDS SUMMARY | 2025-02-22 12:49 | XMS_ITS | Encounter Summary ---
Author Organization [employer] Address 75 [facility] 7t [place] [address] Care Team Providers Care Cook Relief Name Role Phone Natalie Cuenca DO Primary Care Provider + [phone] Reason for Visit * Reason Comments Med Refill Encounter Details Date Type Department Care Team (Late st Contact Info) Description 05/13/2024 Refill [facility] 230 [place], [place] [phone] Natalie Cuenca DO 230 [place], [place] [phone] Muscle spasm Social History Tobacco Use Types [...] Description 03/01/2025 3:45 PM EDT Office Visit [facility] 230 [place] [address] Ilda Pablo MD 230 [place] [address] documented as of this encounter Visit Diagnoses Diagnosis Muscle spasm Spasm of muscle documented in this encounter Additional Health Concerns Assessment Noted Time PHQ-9 Depression Total Score: 10 024 8:39 AM EDT documented as of this encounter Care Teams Cook Relief Relationship Specialty Start Date End Date Natalie Cuenca DO 230 [place] [address] PCP - General Family Medicine 05/23/18 documented as of this encounter
--- OUTSIDE RECORDS SUMMARY | 2025-02-22 12:49 | XMS_ITS | Encounter Summary ---
Author Organization [employer] Address 75 [facility] 7 [place] [address] Care Team Providers Care Recording Artist Name Role Phone Natalie Cuenca DO Primary Care Provider Encounter Details Date Type Department Care Team (Late st Contact Info) Description 05/25/2022 Orders Only [facility] [employer] [facility] 230 [place], [place] [phone] Natalie Cuenca DO 230 [place] [address] Social History Tobacco Use Types Packs/Day Years [...] Description 03/01/2025 3:45 PM EDT Office Visit [facility] 230 [place] [address] Ilda Pablo MD 230 [place] [address] documented as of this encounter Visit Diagnoses Not on filedocumented in this encounter Care Teams Recording Artist Relationship Specialty Start Date End Date Natalie Cuenca DO 230 [place] [address] PCP - General Family Medicine 05/23/18 documented as of this encounter
--- OUTSIDE RECORDS SUMMARY | 2025-02-22 12:49 | XMS_ITS | Encounter Summary ---
Author Organization [employer] [facility] Address 75 [facility] 7t h Floor [place] [phone] Care Team Providers Care Manager Media Name Role Phone Natalie Cuenca DO Primary Care Provider Encounter Details Date Type Department Care Team (Latest Contact Info) Description 05/02/2019 Abstract [facility] CONVERSIONS Dental, Provider, DDS Social History Tobacco [...] Description 03/01/2025 3:45 PM EDT Office Visit [facility] MEDICINE 230 [place] [address] Ilda Pablo MD [address] [place] [address] documented as of this encounter Visit Diagnoses Not on filedocumented in this encounter Care Teams Manager Media Relationship Specialty Start Date End Date Natalie Cuenca DO [address] [place], [place] [phone] PCP - General Family Medicine 05/23/18 documented as of this encounter
--- OUTSIDE RECORDS SUMMARY | 2025-02-22 12:49 | XMS_ITS | Encounter Summary ---
Author Organization [employer] Address 75 [facility] 7t [place] [address] Care Team Providers Care Gun Tester Name Role Phone Natalie Cuenca DO Primary Care Provider + [phone] Reason for Referral * Imaging (STAT) - Closed Specialty Diagnoses / Procedures Referred By Jigna gaam Referred To Contact Diagnoses Abnormal mammogram of both breasts Procedures BI US Breast Complete Right Natalie Cuenca DO 230 [place] [address] Phone: tel: fax: [facility] MRI and CT Scan [address] [place] [address] Phone: tel: fax: Referral ID Status Reason Start Date Expiration Date Visits Re quested Visits Authorized [id number] Closed 06/02/2022 11/29/2022 1 1 * Imaging (STAT) - Closed Specialty Diagnoses / Procedures Referred By Contgerardo t Referred To Contact Diagnoses Abnormal mammogram of both breasts Procedures BI US Breast Complete Left Natalie Cuenca DO 230 [place] [address] Phone: tel: fax: [facility] MRI and CT Scan [address] [place], [place] Phone: tel: fax: Referral ID Status Reason Start Date Expiration Date Visits Re quested Visits Authorized [id number] Closed 06/02/2022 11/29/2022 1 1 * Imaging (STAT) - Closed Specialty Diagnoses / Procedures Referred By Jigna gama Referred To Contact Diagnoses Abnormal mammogram of both breasts Procedures BI Mammogram Diagnostic Bilateral Natalie Cuenca DO 230 [place] [address] Phone: tel: fax: [facility] MRI and CT Scan [address] [place], [place] Phone: tel: fax: Referral ID Status Reason Start Date Expiration Date Visits Re quested Visits Authorized [id number] Closed 06/02/2022 11/29/2022 1 1 Encounter Details Date Type Department Care Team (Late Contact Info) Description 06/02/2022 Orders Only [address] [address] Natalie Cuenca DO [address] [place] [address] Abnormal mammogram of both breasts (Primary Dx) [...] Description 03/01/2025 3:45 PM EDT Office Visit [address] [address] Ilda Pablo MD [address] [place] [address] [phone] Scheduled Orders Name Type Priority Associated Diagnoses [...] Primary documented in this encounter Care Teams Gun Tester Relationship Specialty Start Date End Date Natalie Cuenca DO [address] [place] [address] PCP - General Family Medicine 05/23/18 documented as of this encounter
--- OUTSIDE RECORDS SUMMARY | 2025-02-22 12:50 | XMS_ITS | Encounter Summary ---
Author Organization [employer] Address 75 [facility] 7t [place] [address] Care Team Providers Care Food Demonstrator Name Role Phone Natalie Cuenca DO Primary Care Provider +1- [phone] Reason for Visit * Reason Onset Date Comments Created In Error 04/11/2024 Encounter Details Date Type Department Care Team (Late st Contact Info) Description 04/11/2024 Telephone [facility] MEDICINE 230 [place], [place] [phone] Natalie Cuenca DO 230 [place], [place] [phone] Created In Error Social History Tobacco Use [...] Description 03/01/2025 3:45 PM EDT Office Visit [facility] MEDICINE [address] [place] [address] Ilda Pablo MD [address] [place] [address] documented as of this encounter Visit Diagnoses Not on filedocumented in this encounter Additional Health Concerns Assessment Noted Time PHQ-9 Depression Total Score: 10 024 8:39 AM EDT documented as of this encounter Care Teams Food Demonstrator Relationship Specialty Start Date End Date Natalie Cuenca DO 230 [place] [address] PCP - General Family Medicine 05/23/18 documented as of this encounter
--- OUTSIDE RECORDS SUMMARY | 2025-02-22 12:50 | XMS_ITS | Encounter Summary ---
Author Organization [employer] Address 75 [facility] 7t [place] [address] Care Team Providers Care Blast Furnace Operator Name Role Phone Natalie Cuenca DO Primary Care Provider +1- [phone] Reason for Visit * Reason Onset Date Comments Chart Prep 02/21/2025 Encounter Details Date Type Department Care Team (Late st Contact Info) Description 02/21/[address] [facility] MEDICINE 230 [place], [place] [phone] Natalie Cuenca DO 230 [place], [place] [phone] Chart Prep Social History Tobacco Use Types Packs/Day Years [...] with others, in a hotel, in a fdc, living outside on the street, on a [...] encounter Miscellaneous Notes * Telephone Encounter - Georgina Blackwood [place] - 02/21/2025 7:47 AM EDT Chart Prep Labs: not done Images: done Referrals: appointment pending Podiatry and Ortho. EMG/Nerve Conduction Study-03/26/25([facility]) Vaccines due: no updates Screenings: not applicable Overdue care gaps: Not applicable documented in this encounter Plan of Treatment Upcoming Encounters Date Type Department Care Team (Late st Contact Info) Description 03/01/2025 3:45 PM EDT Office Visit [facility] MEDICINE [address] [place] [address] Ilda Pablo MD [address] [place] [address] documented as of this encounter Visit Diagnoses Not on filedocumented in this encounter Additional Health Concerns Assessment Noted Time PHQ-9 Depression Total Score: 8 01/15/20 1:35 PM EDT documented as of this encounter Care Teams Blast Furnace Operator Relationship Specialty Start Date End Date Natalie Cuenca DO [address] [place] [address] PCP - General Family Medicine 05/23/18 documented as of this encounter
--- OUTSIDE RECORDS SUMMARY | 2025-02-22 12:50 | XMS_ITS | Encounter Summary ---
Author Organization [employer] Address [address] [facility] 7t [place] [address] Care Team Providers Care Scrap Cutter Name Role Phone Natalie Cuenca DO Primary Care Provider +1- [phone] Reason for Visit * Reason Comments Med Refill Encounter Details Date Type Department Care Team (Late st Contact Info) Description 07/24/2022 Refill [facility] MEDICINE [address] [place], [place] [phone] Natalie Cuenca DO [address] [place], [place] [phone] Tobacco use disorder Social History Tobacco Use [...] Description 03/01/2025 3:45 PM EDT Office Visit [facility] MEDICINE [address] [place], [place] [phone] Ilda Pablo MD [address] [place] [address] documented as of this encounter Visit Diagnoses Diagnosis Tobacco use disorder documented in this encounter Additional Health Concerns Assessment Noted Time PHQ-9 Depression Total Score: 0 06/18/19 23 1:12 PM EST documented as of this encounter Care Teams Scrap Cutter Relationship Specialty Start Date End Date Natalie Cuenca DO 230 [place] [address] PCP - General Family Medicine 05/23/18 documented as of this encounter
--- OUTSIDE RECORDS SUMMARY | 2025-02-22 12:50 | XMS_ITS | Encounter Summary ---
Author Organization [employer] Address 75 [facility] 7t [place] [address] Care Team Providers Care Care Provider Name Role Phone Natalie Cuenca DO Primary Care Provider + [phone] Reason for Visit * Reason Comments Med Refill Encounter Details Date Type Department Care Team (Late st Contact Info) Description 01/09/2024 Refill [facility] MEDICINE 230 [place], [place] [phone] Natalie Cuenca DO 230 [place], [place] [phone] Muscle spasm Social History Tobacco Use Types [...] Description 03/01/2025 3:45 PM EDT Office Visit [facility] MEDICINE 230 [place] [address] Ilda Pablo MD [address] [place] [address] documented as of this encounter Visit Diagnoses Diagnosis Muscle spasm Spasm of muscle documented in this encounter Additional Health Concerns Assessment Noted Time PHQ-9 Depression Total Score: 4 12/19/19 24 3:16 PM EDT documented as of this encounter Care Teams Care Provider Relationship Specialty Start Date End Date Natalie Cuenca DO [address] [place] [address] PCP - General Family Medicine 05/23/18 documented as of this encounter
--- OUTSIDE RECORDS SUMMARY | 2025-02-22 12:50 | XMS_ITS | Encounter Summary ---
Author Organization [employer] Address [address] [facility] 7t [place] [address] Care Team Providers Care Aircraft Structural Fitter Name Role Phone Natalie Cuenca DO Primary Care Provider [phone]- [phone] Reason for Visit * Reason Onset Date Comments Med Refill 01/03/2023 Encounter Details Date Type Department Care Team (Late st Contact Info) Description 01/03/2023 Telephone [facility] [address] [place], [place] [phone] Natalie Cuenca DO 230 [place], [place] [phone] Med Refill Social History Tobacco Use Types [...] 2:22 PM EDT Gabapentin was sent to [facility] #[id number] on 09/20/22 #90 with 3 refills and 90 day supply of baclofen was sent on 11/11/22 to [facility] for refill. * Telephone Encounter - Mariza Echevarria - 01/03/2023 2:16 PM EDT Tc from patient requesting a med refill on medication baclofen 10 mg and gabapentin 300 mg. Please send to [facility]/pharmacy #[id number] [facility] [phone] [facility] PCP Dr. Cuenca documented in this encounter Plan of Treatment Upcoming Encounters Date Type Department Care Team (Late st Contact Info) Description 03/01/2025 3:45 PM EDT Office Visit [facility] MED[facility] [address] [place], [place] [phone] Ilda Pablo MD 230 [place], [place] [phone] documented as of this encounter Visit Diagnoses Not on filedocumented in this encounter Additional Health Concerns Assessment Noted Time PHQ-9 Depression Total Score: 0 06/18/19 23 1:12 PM EST documented as of this encounter Care Teams Aircraft Structural Fitter Relationship Specialty Start Date End Date Natalie Cuenca DO [address] [place] [address] [phone] PCP - General Family Medicine 05/23/18 documented as of this encounter
--- OUTSIDE RECORDS SUMMARY | 2025-02-22 12:50 | XMS_ITS | Encounter Summary ---
Author Organization [employer] Address 75 [facility] 7t [place] [address] Care Team Providers Care Manager Architecture Name Role Phone Grisel Cuencafer Primary Care Provider Encounter Details Date Type Department Care Team (Late st Contact Info) Description 09/02/2023 Orders Only [facility] MEDICINE [address] [place] [address] ProviderMin MD Social History Tobacco Use Types Packs/Day Years [...] 3:45 PM EDT Office Visit [facility] MEDICINE [address] [place] [address] Ilda Pablo MD 230 [place] [address] documented as of this encounter Procedures Procedure Name Priority Date/Time Associated Diagnosis Comments HM COLONOSCOPY Routine 07/20/2021 10:16 AM EST documented in this encounter Results * Hm Colonoscopy (07/20/2021 10:16 AM EST) Historical Provider HEALTH MAINTENANCE Final Result documented in this encounter Visit Diagnoses Not on filedocumented in this encounter Additional Health Concerns Assessment Noted Time PHQ-9 Depression Total Score: 13 04/2 024 2:06 PM EDT documented as of this encounter Care Teams Manager Architecture Relationship Specialty Start Date End Date Natalie Cuenca DO 230 [place] [address] PCP - General Family Medicine 05/23/18 documented as of this encounter
--- OUTSIDE RECORDS SUMMARY | 2025-02-22 12:50 | XMS_ITS | Encounter Summary ---
Author Organization [employer] Address 75 [facility] 7t [place] [address] Care Team Providers Care Inspector Purchased Parts Name Role Phone Bang Natalie Primary Care Provider Encounter Details Date Type Department Care Team (Latest Contact Info) Description 02/22/2025 Travel Social History Tobacco Use Types Packs/Day [...] with others, in a hotel, in a penitentiary, living outside on the street, on a [...] Description 03/01/2025 3:45 PM EDT Office Visit [facility] MEDICINE [address] [place] [address] Ilda Pablo MD 230 [place] [address] documented as of this encounter Visit Diagnoses Not on filedocumented in this encounter Additional Health Concerns Assessment Noted Time PHQ-9 Depression Total Score: 8 01/15/20 25 1:35 PM EDT documented as of this encounter Care Teams Inspector Purchased Parts Relationship Specialty Start Date End Date Natalie Cuenca DO [address] [place] [address] PCP - General Family Medicine 05/23/18 documented as of this encounter
--- OUTSIDE RECORDS SUMMARY | 2025-02-22 12:50 | XMS_ITS | Encounter Summary ---
Author Organization [employer] Address [address] [facility] 7t [place] [address] Care Team Providers Care Lock Tender Name Role Phone Grisel Cuencafer Primary Care Provider +1 [phone] Reason for Visit * Reason Comments Med Refill Encounter Details Date Type Department Care Team (Late st Contact Info) Description 11/03/2022 Refill [facility] [address] [place], [place] [phone] Madhavi Hylton MD [address] [place], [place] [phone] Muscle spasm Social History Tobacco Use Types [...] Description 03/01/2025 3:45 PM EDT Office Visit [facility] MEDICINE 230 [place], [place] [phone] Ilda Pablo MD [address] [place] [address] documented as of this encounter Visit Diagnoses Diagnosis Muscle spasm Spasm of muscle documented in this encounter Additional Health Concerns Assessment Noted Time PHQ-9 Depression Total Score: 0 06/18/19 23 1:12 PM EST documented as of this encounter Care Teams Lock Tender Relationship Specialty Start Date End Date Natalie Cuenca DO [address] [place] [address] PCP - General Family Medicine 05/23/18 documented as of this encounter
--- OUTSIDE RECORDS SUMMARY | 2025-02-22 12:50 | XMS_ITS | Encounter Summary ---
Author Organization [employer] Address 75 [facility] 7t [place] [address] Care Team Providers Care Welding Equipment Sales Representative Name Role Phone SamuelNatalie dumont Primary Care Provider +1- [phone] Reason for Visit * Reason Comments Med Refill Encounter Details Date Type Department Care Team (Late st Contact Info) Description 01/02/[address] [facility] MEDICINE [address] [place] [address] [phone] Estefani Webster MD [address] [place], [place] [phone] Social History Tobacco Use Types Packs/Day Years [...] 03/01/2025 3:45 PM EDT Office Visit [facility] MEDICINE [address] [place] [address] [phone] Ilda Pablo MD [address] [place], [place] [phone] documented as of this encounter Visit Diagnoses Not on filedocumented in this encounter Additional Health Concerns Assessment Noted Time PHQ-9 Depression Total Score: 0 06/18/19 23 1:12 PM EST documented as of this encounter Care Teams Welding Equipment Sales Representative Relationship Specialty Start Date End Date Natalie Cuenca DO [address] [place] [address] PCP - General Family Medicine 05/23/18 documented as of this encounter
--- OUTSIDE RECORDS SUMMARY | 2025-02-22 12:50 | XMS_ITS | Encounter Summary ---
Author Organization [employer] Address 75 [facility] 7t [place] [address] Care Team Providers Care Manager Access Name Role Phone Natalie Cuenca DO Primary Care Provider +1 [phone] Reason for Visit * Reason Comments Med Change Request Encounter Details Date Type Department Care Team (Late st Contact Info) Description 08/16/2023 Refill [facility] MEDICINE 230 [place], [place] [phone] Natalie Cuenca DO 230 [place], [place] [phone] Tobacco use disorder Social History Tobacco Use [...] Description 03/01/2025 3:45 PM EDT Office Visit [facility] MEDICINE [address] [place] [address] Ilda Pablo MD 230 [place] [address] documented as of this encounter Visit Diagnoses Diagnosis Tobacco use disorder documented in this encounter Additional Health Concerns Assessment Noted Time PHQ-9 Depression Total Score: 18 023 8:33 AM EDT documented as of this encounter Care Teams Manager Access Relationship Specialty Start Date End Date Natalie Cuenca DO [address] [place] [address] PCP - General Family Medicine 05/23/18 documented as of this encounter
--- OUTSIDE RECORDS SUMMARY | 2025-02-22 12:50 | XMS_ITS | Encounter Summary ---
Author Organization [employer] Address 75 [facility] 7t [place] [address] Care Team Providers Care Core Composer Feeder Name Role Phone Natalie Cuenca DO Primary Care Provider + [phone] Reason for Visit * Reason Comments Med Refill Encounter Details Date Type Department Care Team (Late st Contact Info) Description 04/08/2024 Refill [facility] MEDICINE [address] [place], [place] [phone] Natalie Cuenca DO 230 [place], [place] [phone] Muscle spasm Social History Tobacco Use Types [...] Description 03/01/2025 3:45 PM EDT Office Visit [facility]INE [address] [place] [address] Ilda Pablo MD [address] [place] [address] documented as of this encounter Visit Diagnoses Diagnosis Muscle spasm Spasm of muscle documented in this encounter Additional Health Concerns Assessment Noted Time PHQ-9 Depression Total Score: 10 024 8:39 AM EDT documented as of this encounter Care Teams Core Composer Feeder Relationship Specialty Start Date End Date Natalie Cuenca DO [address] [place] [address] PCP - General Family Medicine 05/23/18 documented as of this encounter
--- OUTSIDE RECORDS SUMMARY | 2025-02-22 12:50 | XMS_ITS | Encounter Summary ---
Author Organization [employer] Address [address] [facility] [address] 7t [place] [address] Care Team Providers Care Jig Bore Operator Name Role Phone Natalie Cuenca DO Primary Care Provider +1- [phone] Encounter Details Date Type Department Care Team (Late st Contact Info) Description 05/03/2024 Telephone [facility] MEDICINE 230 [place], [place] [phone] Natalie Cuenca DO 230 [place], [place] [phone] Social History Tobacco Use Types Packs/Day Years [...] Description 03/01/2025 3:45 PM EDT Office Visit [facility] MEDICINE 230 [place] [address] Ilda Pablo MD [address] [place] [address] documented as of this encounter Visit Diagnoses Not on filedocumented in this encounter Additional Health Concerns Assessment Noted Time PHQ-9 Depression Total Score: 10 024 8:39 AM EDT documented as of this encounter Care Teams Jig Bore Operator Relationship Specialty Start Date End Date Natalie Cuenca DO 230 [place] [address] PCP - General Family Medicine 05/23/18 documented as of this encounter
--- OUTSIDE RECORDS SUMMARY | 2025-02-22 12:50 | XMS_ITS | Encounter Summary ---
Author Organization [employer] Address 75 [facility] 7t [place] [address] Care Team Providers Care Spray Booth Operator Name Role Phone Natalie Cuenca DO Primary Care Provider +[phone]- [phone] Reason for Visit * Reason Comments Med Refill Encounter Details Date Type Department Care Team (Late st Contact Info) Description 01/02/2023 Refill [facility] MEDICINE [address] [place] [address] [phone] Natalie Cuenca DO 230 [place], [place] [phone] Tobacco use disorder; Muscle spasm Social History [...] Description 03/01/2025 3:45 PM EDT Office Visit [facility] MEDICINE [address] [place] [address] [phone] Ilda Pablo MD 230 [place], [place] [phone] documented as of this encounter Visit Diagnoses Diagnosis Tobacco use disorder Muscle spasm Spasm of muscle documented in this encounter Additional Health Concerns Assessment Noted Time PHQ-9 Depression Total Score: 0 06/18/19 23 1:12 PM EST documented as of this encounter Care Teams Spray Booth Operator Relationship Specialty Start Date End Date Natalie Cuenca DO 230 [place] [address] PCP - General Family Medicine 05/23/18 documented as of this encounter
--- OUTSIDE RECORDS SUMMARY | 2025-02-22 12:50 | XMS_ITS | Encounter Summary ---
Author Organization [employer] Address [address] [place] [address] Care Team Providers Care Family Service Counselor Name Role Phone Grisel Cuencafer Primary Care Provider [phone] Reason for Visit * Reason Comments Med Refill Encounter Details Date Type Department Care Team (Late st Contact Info) Description 10/21/2022 Refill [facility] [address] [place], [place] [phone] Madhavi Hylton MD [address], [place] [phone] Muscle spasm Social History Tobacco Use Types [...] Description 03/01/2025 3:45 PM EDT Office Visit [facility] [address] [place], [place] [phone] Ilda Pablo MD [address] [place] [address] documented as of this encounter Visit Diagnoses Diagnosis Muscle spasm Spasm of muscle documented in this encounter Additional Health Concerns Assessment Noted Time PHQ-9 Depression Total Score: 0 06/18/19 23 1:12 PM EST documented as of this encounter Care Teams Family Service Counselor Relationship Specialty Start Date End Date Natalie Cuenca DO [address] [place] [address] PCP - General Family Medicine 05/23/18 documented as of this encounter
[2025-02-22 13:43] LABS: Hematocrit 33.5 % (37.0-47.0); Hemoglobin 11.3 g/dl (12.0-16.0); Mean Corpuscular HGB Conc 33.7 g/dl (31.0-35.0); Mean Corpuscular Hemoglobin 30.1 pg (27.0-33.0); Mean Corpuscular Volume 89.1 fL (80.0-98.0); NRBC Abs Auto 0.000 X10*3/uL (0.0-0.012); NRBC Pct Auto 0.0 /100WBC (0.0-0.2); Platelet Count 242 X10*3/uL (160-400); Red Blood Count 3.76 X10*6/uL (4.20-5.50); White Blood Count 6.1 X10*3/uL (4.8-10.8)
[2025-02-22 14:20] LABS: Alanine Aminotransferase 20 U/L (0-31); Albumin Level 3.9 g/dL (3.5-5.0); Alkaline Phosphatase 65 U/L (39-117); Anion Gap 10 (12-20); Aspartate Amino Transferase 19 U/L (5-31); Blood Urea Nitrogen 20 mg/dL (9-16); Calcium 9.0 mg/dL (8.4-10.2); Carbon Dioxide 26 mmol/L (22-29); Chloride 108 mmol/L (96-108); Cholesterol 146 mg/dL (<200); Estimated Glomerular Filt Rate > 60; HDL Cholesterol 54 mg/dL (>40); Potassium 4.2 mmol/L (3.3-5.1); Sodium 140 mmol/L (135-145); Total Protein 6.8 g/dL (6.5-8.0); Triglycerides 105 mg/dL (<150)
[2025-02-22 14:46] LABS: Folate 7.5 ng/mL (> or = 4.0); Vitamin B12 233 pg/mL (200-900)
[2025-02-22 14:53] LABS: Free T4 (Free Thyroxine) 1.04 ng/dL (0.71-1.85); Thyroid Stimulating Hormone 2.37 uIU/mL (0.32-4.0)
[2025-02-23 04:16] LABS: HIV Num 1 0.05 S/CO (0.00-0.99); ~HepC Num1 0.08 S/CO (0.00-0.79); ~Hepatitis C Antibody Nonreactive (Nonreactive)
== END 2025-02-22 11:43 | disposition home or self-care (01) ==
LOC: HO.HHCL 11:42
PROVIDERS: PCP Family Medicine; Visit Provider Family Medicine
DX: Z00.00 Encounter for general adult medical examination without abnormal findings (principal); Z13.1 Encounter for screening for diabetes mellitus; Z11.59 Encounter for screening for other viral diseases; Z11.4 Encounter for screening for human immunodeficiency virus [HIV]; E78.49 Other hyperlipidemia; F19.10 Other psychoactive substance abuse, uncomplicated; J45.30 Mild persistent asthma, uncomplicated; F17.200 Nicotine dependence, unspecified, uncomplicated; R23.2 Flushing; M79.644 Pain in right finger(s); G57.11 Meralgia paresthetica, right lower limb; M25.551 Pain in right hip; M79.671 Pain in right foot; R68.89 Other general symptoms and signs; F33.9 Major depressive disorder, recurrent, unspecified; R25.1 Tremor, unspecified
CPT/HCPCS: 36415; 80048; 80061; 80076; 82306; 82607; 82746; 83036; 84439; 84443; 85027; 86592; 86803; 87389